=== PATIENT | male | born 1950 | race Caucasian/White ===

== ENCOUNTER 2022-02-25 00:30 | Day surgery (SDC) | payer MEDICARE, SELFPAY ==
[2022-02-10 14:16] VITALS: BMI 32.8
[2022-02-25 07:06] VITALS: BP 156/74; PULSE 61; RESP 18; TEMP 36.4; O2SAT 98
[2022-02-25] MEDS: LACTATED RINGERS 1,000 ML 150 ML IV CONT (07:22)
[2022-02-25 07:24] LABS: Glucose Point of Care 164 mg/dl (65-105)
--- NOTE | 2022-02-25 07:52 | WPDANESEPPF ---
Anes - Initial Pre Proc Eval Procedure: Operation Date: 02/25/22 08:00 Proposed Procedures p Screening Colonoscopy - Dano Milner MD Date/Time: 02/25/22 07:52 Surgeon: Dano Milner MD Pre Op Diagnosis: neoplasm screening Patient Data Age: 71 Gender: M Height: 1.8 m Weight: 103.6 kg Last Vital Signs Temp 97.6 F 02/25/22 07:06 Pulse 61 02/25/22 07:06 Resp 18 02/25/22 07:06 BP 156/74 H 02/25/22 07:06 Pulse Ox 98 02/25/22 07:06 O2 Del Method Room Air 02/25/22 07:06 Allergies Allergy/AdvReac Type Severity Reaction Status Date / Time No Known Allergies Allergy Verified 02/25/22 07:04 Home Medications Medication Instructions Recorded Confirmed Type aspirin 81 mg tablet,delayed 81 mg PO DAILY 06/14/19 02/10/22 History release ferrous sulfate 325 mg (65 mg 325 mg PO DAILY 06/14/19 02/10/22 History iron) tablet vitamin B12 500 mcg-folic acid 400 1 tablet PO DAILY 06/14/19 02/10/22 History mcg tablet blood sugar diagnostic (OneTouch #100 ea 10/08/21 Rx Verio test strips) amlodipine 10 mg tablet (Norvasc) 10 mg PO DAILY #90 tabs 01/07/22 02/25/22 Rx fenofibrate 160 mg tablet 160 mg PO DAILY #90 tabs 01/07/22 02/10/22 Rx metoprolol tartrate 75 mg tablet 75 mg PO BID #180 tabs 01/08/22 02/25/22 Rx allopurinol 300 mg tablet 300 mg PO DAILY 02/10/22 02/10/22 History cholecalciferol (vitamin D3) 50 50 mcg PO DAILY 02/10/22 02/10/22 History mcg (2,000 unit) tablet glipizide 10 mg tablet, extended 10 mg PO DAILY 02/10/22 02/10/22 History release 24 hr lisinopril 10 mg tablet 20 mg PO DAILY 02/10/22 02/10/22 History metformin 500 mg tablet,extended 1,000 mg PO BID 02/10/22 02/10/22 History release 24 hr pantoprazole 40 mg tablet,delayed 40 mg PO DAILY 02/10/22 02/10/22 History release atorvastatin 40 mg tablet 40 mg PO DAILY #90 tabs 02/21/22 02/25/22 Rx Laboratory Tests 02/25/22 07:20 POC Capillary Glucose 164 mg/dl H mg/dl (65-105) Patient hx anesthesia problems: none Family hx anesthesia problems: none Results Review: All pre-operative results and documents have been reviewed as part of the pre-operative evaluation. [facility] Past Medical History Medical History Body mass index [BMI] 32.0-32.9, adult (08/18/17) Body mass index [BMI] 33.0-33.9, adult (04/21/17) CAD in [place] artery Gastroesophageal reflux disease without esophagitis HLD (hyperlipidemia) HTN (hypertension) Oropharyngeal dysphagia Vitamin D deficiency Family History Family History Mother Patient's mother is , Onset Age: 79 Father Patient's father is , Onset Age: 69 Social History Social History Smoking status: Never smoker Alcohol intake: current Drinks per week: 8 Substance use type: does not use Living arrangements: with family Spiritual care concerns: No Anes - Eval Final PreProcedure Day of Procedure 02/25/22 07:52 Patient weight: obese Heart: regular rate and rhythm Lungs: clear to auscultation Airway: Mallampati scale class II Neurological: alert and oriented Last oral intake: >/= 8 hours ASA classification: III Emergent: no Anesthetic plan: proceed Anesthesia type and monitoring: general GIVS and standard monitoring Results Review: All pre-operative results and documents have been reviewed as part of the pre-operative evaluation. Informed Consent: The patient's anesthetic plan and its attendant risks and benefits were discussed with the patient/family/POA. Questions were solicited and answers provided to the satisfaction of the patient/family/POA.
--- NOTE | 2022-02-25 08:11 | PM.HPGS ---
History of Present Illness History of Present Illness Consent: Risks, benefits, and alternatives have been discussed and questions answered. Patient agrees to proceed with procedure. Chief complaint: neoplasm screening Narrative: Bo Zeng is a 71 year old male here for screening colonoscopy, last one ~ 20 years ago Review of Systems Constitutional: Constitutional: Denies headache(s) and Denies weakness Eyes: Eyes: Denies blurry vision ENT: Reports Normal hearing present, Denies headache(s) and Denies neck pain Cardiovascular: Cardiovascular: Denies chest pain and Denies dyspnea Respiratory: Respiratory: Denies dyspnea Gastrointestinal: Gastrointestinal: Reports no additional gastrointestinal complaints Genitourinary: Genitourinary: Denies dysuria Musculoskeletal: Musculoskeletal: Denies neck pain Integumentary/Breasts: Skin/Breast: Denies dry skin Neurologic: Reports Normal hearing present, Denies headache(s) and Denies weakness Psychiatric: Psychiatric: Denies anxiety Endocrine: Endocrine: Denies change in body appearance Hematologic/Lymphatic: Hematologic/Lymphatic: Denies easy bleeding Allergic/Immunologic: Allergic/Immunologic: Denies urticaria PMFSH Past Medical History Medical History Body mass index [BMI] 32.0-32.9, adult (08/18/17) Body mass index [BMI] 33.0-33.9, adult (04/21/17) CAD in [place] artery Gastroesophageal reflux disease without esophagitis HLD (hyperlipidemia) HTN (hypertension) Oropharyngeal dysphagia Vitamin D deficiency Family History Family History Mother Patient's mother is , Onset Age: 79 Father Patient's father is , Onset Age: 69 Social History Social History Smoking status: Never smoker Alcohol intake: current Drinks per week: 8 Substance use type: does not use Living arrangements: with family Spiritual care concerns: No Meds Home Medications and Allergies Home Medications Medication Instructions Recorded Confirmed Type aspirin 81 mg tablet,delayed 81 mg PO DAILY 06/14/19 02/10/22 History release ferrous sulfate 325 mg (65 mg 325 mg PO DAILY 06/14/19 02/10/22 History iron) tablet vitamin B12 500 mcg-folic acid 400 1 tablet PO DAILY 06/14/19 02/10/22 History mcg tablet blood sugar diagnostic (OneTouch #100 ea 10/08/21 Rx Verio test strips) amlodipine 10 mg tablet (Norvasc) 10 mg PO DAILY #90 tabs 01/07/22 02/25/22 Rx fenofibrate 160 mg tablet 160 mg PO DAILY #90 tabs 01/07/22 02/10/22 Rx metoprolol tartrate 75 mg tablet 75 mg PO BID #180 tabs 01/08/22 02/25/22 Rx allopurinol 300 mg tablet 300 mg PO DAILY 02/10/22 02/10/22 History cholecalciferol (vitamin D3) 50 50 mcg PO DAILY 02/10/22 02/10/22 History mcg (2,000 unit) tablet glipizide 10 mg tablet, extended 10 mg PO DAILY 02/10/22 02/10/22 History release 24 hr lisinopril 10 mg tablet 20 mg PO DAILY 02/10/22 02/10/22 History metformin 500 mg tablet,extended 1,000 mg PO BID 02/10/22 02/10/22 History release 24 hr pantoprazole 40 mg tablet,delayed 40 mg PO DAILY 02/10/22 02/10/22 History release atorvastatin 40 mg tablet 40 mg PO DAILY #90 tabs 02/21/22 02/25/22 Rx Allergies Allergy/AdvReac Type Severity Reaction Status Date / Time No Known Allergies Allergy Verified 02/25/22 07:04 Vital Signs Vital Signs - 24 hr 02/25/22 07:06 Temperature 97.6 F Pulse Rate 61 Respiratory Rate 18 Blood Pressure 156/74 H Pulse Oximetry 98 Oxygen Delivery Room Air Exam Const: General: comfortable and no acute distress HENMT: Face/Nose/Sinus: Normal nares present Eyes: General: appearance normal, both eyes and all related structures Neck: Neck: no JVD Resp: Auscultation: clear to auscultation bilaterally Cardio: Rate: regular rate Rhythm:
[2022-02-25 08:26] VITALS: BP 123/75; PULSE 55; RESP 18; O2SAT 96
[2022-02-25 08:36] VITALS: BP 141/81; PULSE 55; RESP 19; O2SAT 100
[2022-02-25 08:46] VITALS: BP 153/83; PULSE 62; RESP 20; O2SAT 100
== END 2022-02-25 08:57 | disposition home or self-care (01) ==
PROVIDERS: PCP Emergency Medicine; Visit Provider Internal Medicine Gastroenterology
PROC: 0DJD8ZZ Inspection of Lower Intestinal Tract, Via Natural or Artificial Opening Endoscopic (ICD-10-PCS; CPT 45378; principal; 2022-02-25 08:00)
DX: Z12.11 Encounter for screening for malignant neoplasm of colon (principal); K64.8 Other hemorrhoids; Z79.82 Long term (current) use of aspirin; Z79.84 Long term (current) use of oral hypoglycemic drugs; I25.10 Atherosclerotic heart disease of native coronary artery without angina pectoris; K21.9 Gastro-esophageal reflux disease without esophagitis; E78.5 Hyperlipidemia, unspecified; I10 Essential (primary) hypertension; E55.9 Vitamin D deficiency, unspecified; E66.9 Obesity, unspecified; Z68.31 Body mass index [BMI] 31.0-31.9, adult
CPT/HCPCS: G0121; 82948; J2704; J7120

== ENCOUNTER 2022-07-19 08:38 | Emergency (ER) | payer MEDICARE, SELFPAY ==
--- NOTE | ~2022-07-19 | CT_ITS ---
EXAMINATION: CT abdomen pelvis w con DATE: 07/19/2022 11:19 INDICATION: Right abdominal pain. TECHNIQUE: Computed tomography (CT) of the abdomen and pelvis was performed with 100 mL Omnipaque 350 intravenous contrast. Automated exposure control and iterative reconstruction technique were employe d. The dose-length product was 1217.00 mGy-cm. COMPARISON: None. FINDINGS: The results visualized portions of the lung bases demonstrate mild atelectasis. No pleural effusion. The heart size is normal. There are coronary artery calcifications. No pericardial effusion . The liver, spleen, gallbladder, pancreas, and kidneys are normal. There is a 7.0 cm cyst in right k idney. Left kidney is normal. The prostate is moderately enlarged. There are no dilated loops of barb l. The appendix is normal. There are no pathologically enlarged lymph nodes. There is no free intrape ritoneal fluid. There is calcified atherosclerosis of the aorta and many of the other arteries. There is severe thoracic spondylosis and moderate lumbar spondylosis. IMPRESSION: 1. No etiology for the patient's symptoms. Reviewed, dictated and finalized at location A. NT COACH
--- NOTE | ~2022-07-19 | US_ITS ---
EXAMINATION: US right upper quadrant DATE: 07/19/2022 12:40 INDICATION: Right upper quadrant abdominal pain. TECHNIQUE: Multiple grayscale and Doppler ultrasound images of the abdomen were obtained. COMPARISON: CT abdomen and pelvis 07/19/2022 FINDINGS: The visualized portions of the head and body of the pancreas are normal. The liver is valerio l without focal lesion. There is normal flow in main portal vein. The gallbladder is normal in size. No gallstones or gallbladder wall thickening. There is no sonographic Herrera sign. The common duct is normal and measures 4 mm. There is a 6.4 cm cyst in right kidney. IMPRESSION: 1. No etiology for the patient's symptoms. Reviewed, dictated and finalized at location A. ICS PROFESSOR
[2022-07-19 08:52] VITALS: BP 140/75; PULSE 66; RESP 16; TEMP 36.4; O2SAT 100
--- NOTE | 2022-07-19 09:27 | ED.ABDPAIN ---
HPI - Abdominal Pain General Chief Complaint: Abdominal Pain Stated Complaint: RUQ pain Time Seen by Provider: 07/19/22 09:06 History of Present Illness HPI narrative: Patient is a 72-year-old male who presents ER with intermittent right-sided abdominal pain. Mid to upper abdomen. Curves in light of symptoms typically worse at night. No nausea or vomiting or diarrhea. No urinary frequency urgency or dysuria. No history of gallstones. Does have history of kidney stones. Denies blood in urine. Has found no alleviating factors. Related Data Home Medications Medication Instructions Recorded Confirmed aspirin 81 mg tablet,delayed 81 mg PO DAILY 06/14/19 02/10/22 release ferrous sulfate 325 mg (65 mg 325 mg PO DAILY 06/14/19 02/10/22 iron) tablet vitamin B12 500 mcg-folic acid 400 1 tablet PO DAILY 06/14/19 02/10/22 mcg tablet allopurinol 300 mg tablet 300 mg PO DAILY 02/10/22 02/10/22 glipizide 10 mg tablet, extended 10 mg PO DAILY 02/10/22 02/10/22 release 24 hr metformin 500 mg tablet,extended 1,000 mg PO BID 02/10/22 02/10/22 release 24 hr Allergies Allergy/AdvReac Type Severity Reaction Status Date / Time No Known Allergies Allergy Verified 07/19/22 08:55 Review of Systems Review of Systems: All systems reviewed & are unremarkable except as noted in HPI and below Constitutional: Constitutional: Denies chills, Denies fatigue and Denies fever(s) ENT: Denies nasal congestion and Denies sore throat Cardiovascular: Cardiovascular: Denies chest pain, Denies rapid heart rate and Denies radiating jaw, neck or arm pain Respiratory: Respiratory: Denies cough and Denies dyspnea Gastrointestinal: Gastrointestinal: Reports abdominal pain, Denies diarrhea, Denies nausea and Denies vomiting Genitourinary: Genitourinary: Denies hematuria, Denies dysuria and Denies urinary frequency PMFSH Past Medical History Medical History (Updated 07/19/22 @ 13:21 by Elliot Levine MD) Body mass index [BMI] 32.0-32.9, adult (08/18/17) Body mass index [BMI] 33.0-33.9, adult (04/21/17) CAD in [place] artery Gastroesophageal reflux disease without esophagitis HLD (hyperlipidemia) HTN (hypertension) Oropharyngeal dysphagia Vitamin D deficiency Surgical History Surgical History (Updated 07/19/22 @ 09:29 by Elliot Levine MD) History of carpal tunnel surgery History of knee replacement, total Hx of CABG Family History Family History Mother Patient's mother is , Onset Age: 79 Father Patient's father is , Onset Age: 69 Social History Social History Smoking status: Never smoker Alcohol intake: current Drinks per week: 8 Substance use type: does not use Living arrangements: with family Spiritual care concerns: No Exam Narrative: GENERAL: Well-appearing, well-nourished, and in no acute distress. HEAD: Normocephalic, atraumatic. EYES: PERRL and EOMI. ENT: Mucous membranes moist. CHEST: Clear to auscultation. No respiratory distress. HEART: Regular rate and rhythm. Normal peripheral pulses. ABDOMEN: Soft, nontender, nondistended. EXTREMITIES: Normal range of motion. No edema. NEURO: Alert and oriented x3. PSYCH: Normal mood and affect. Course Course Emergency Course: Patient resting comfortably. Informed of results. Symptoms may be related to renal cyst. Will give urology phone number. No additional questions from patient/family. Vital Signs Vital signs: Vital Signs Temperature 97.6 F 07/19/22 08:52 Pulse Rate 66 07/19/22 08:52 Respiratory Rate 16 07/19/22 08:52 Blood Pressure 140/75 07/19/22 08:52 Pulse Oximetry 100 07/19/22 08:52 Oxygen Delivery Room Air 07/19/22 08:52 Temperature 97.6 F 07/19/22 08:52 Pulse Rate 66 07/19/22 08:52 Respiratory Rate 16 07/19/22 08:52 Blood Pressure 140/
[2022-07-19 10:14] LABS: Basophils Percent Auto 0.6 % (0.2-1.2); Eosinophils Absolute Auto 0.1 K/mm3 (0-0.3); Eosinophils Percent Auto 1.8 % (0-4.4); Hematocrit 36.8 % (42.0-52.0); Immature Granulocyte Absolute 0.02 K/mm3 (0.00-0.031); Immature Granulocyte Percent A 0.4 % (0-0.5); Lymphocytes Absolute Auto 1.06 K/mm3 (0.9-3.2); Lymphocytes Percent Auto 19.6 % (18.3-44.2); Mean Corpuscular HGB Conc 32.6 g/dl (32-36); Mean Corpuscular Hemoglobin 30.9 pg (26-34); Mean Corpuscular Volume 94.8 fl (80-100); Mean Platelet Volume 9.5 fl (7.4-10.4); Monocytes Absolute Auto 0.5 K/mm3 (0.1-0.6); Monocytes Percent Auto 8.5 % (2.6-8.5); Neutrophils Absolute Auto 3.8 K/mm3 (1.3-6.7); Neutrophils Percent Auto 69.1 % (45.5-73.1); Platelet Count Result 209 k/mm3 (150-375); Red Blood Count 3.88 M/mm3 (4.6-6.20); Red Cell Distribution Width 12.7 % (11.5-14.5); White Blood Count 5.4 K/mm3 (4.5-10.0)
[2022-07-19 10:37] LABS: Appearance Urine Clear (Clear); Bacteria Urine None Seen /hpf; Bilirubin Urine Negative (Negative); Blood Urine Trace (Negative); Color Urine Yellow (Yellow); Glucose Urine UA 1+ mg/dL (Negative); Ketones Urine Negative (Negative); Leukocyte Esterase Ur Negative LEU/UL (Negative); Nitrate Urine Negative (Negative); Non Pathogenic Casts 0-2; Protein Urine 3+ mg/dL (Negative); RBC Urine 0-2 /hpf (0-2); Specific Grav Ur 1.016 (1.001-1.035); Squamous Epithelial Cell Urine None seen /hpf (Few); Urobilinogen Urine 0.2 mg/dL (<2.0); WBC Urine 0-5 /hpf
[2022-07-19 10:40] LABS: Alanine Aminotransferase 16 U/L (6-50); Alkaline Phosphatase 40 U/L (38-126); Anion Gap 6 mmol/L (8-16); Aspartate Amino Transferase 20 U/L (17-59); Bilirubin,Total 0.6 mg/dL (0.2-1.3); Blood Urea Nitrogen 19 mg/dL (9-20); Calcium 9.1 mg/dL (8.4-10.2); Carbon Dioxide 26 mmol/L (22-30); Chloride 100 mmol/L (98-107); Estimated CRCL calculation 59 ml/min; Estimated Glomerular Filt Rate 59; Glucose 206 mg/dL (65-110); Lipase 69 U/L (23-300); Potassium 4.2 mmol/L (3.4-5.0); Sodium 132 mmol/L (137-145)
[2022-07-19 10:42] LABS: Add Urine Microscopic? YES
== END 2022-07-19 13:51 | disposition home or self-care (01) ==
PROVIDERS: Emergency Provider Emergency Medicine; PCP Emergency Medicine
DX: N28.1 Cyst of kidney, acquired (principal); R10.9 Unspecified abdominal pain; I25.10 Atherosclerotic heart disease of native coronary artery without angina pectoris; I10 Essential (primary) hypertension; E78.5 Hyperlipidemia, unspecified; E55.9 Vitamin D deficiency, unspecified; K21.9 Gastro-esophageal reflux disease without esophagitis; Z95.1 Presence of aortocoronary bypass graft; Z79.82 Long term (current) use of aspirin; Z79.84 Long term (current) use of oral hypoglycemic drugs
CPT/HCPCS: 36415; 74177; 76705; 80053; 81001; 83690; 85025; 99284; Q9967

== ENCOUNTER 2024-02-16 07:53 | Outpatient (CLI) | payer MEDICARE, SELFPAY ==
--- NOTE | ~2024-02-16 | US_ITS ---
Renal-Bladder ultrasound Clinical History: Hypertension Technique: Real-time sonographic imaging of the kidneys and urinary bladder was performed. Findings: The right kidney measures 11.9 cm in length and the left kidney measures 13.3 cm. There is no hydronephrosis or renal calculus identified. Renal cortical echogenicity is increased. Right lower pole renal cyst measures 6.7 cm in diameter, with a single thin septation. The urinary bladder is moderately distended at the time of this exam. No intraluminal echoes are iden tified. No abnormal wall thickening is seen. Impression: Echogenic kidneys suggest chronic medical renal disease. Large, benign right lower pole renal cyst, as above. Reviewed, dictated and finalized at location M. Impression: Echogenic kidneys suggest chronic medical renal disease. Large, benign right lower pole renal cyst, as above.
== END 2024-02-16 07:54 | disposition home or self-care (01) ==
PROVIDERS: PCP Emergency Medicine; Visit Provider Internal Medicine Nephrology
DX: I10 Essential (primary) hypertension (principal); N18.31 Chronic kidney disease, stage 3a
CPT/HCPCS: 76775

== ENCOUNTER 2025-05-14 04:12 | Inpatient (IN) | payer MEDICARE, SELFPAY ==
[2025-05-14] VITALS (19 sets, daily range): BP systolic 132–161; BP diastolic 67–88; PULSE 60–107; RESP 14–22; TEMP 36.6–37.1; O2SAT 94–100; BMI 32.8
--- NOTE | ~2025-05-14 | XR_ITS ---
Examination: XR chest 1V portable Clinical History: KANDIS Comparison: 10/30/2017 Technique: Portable AP Findings: Heart size enlarged. Left lung unilateral interstitial markings. Left CP angle blunting. No acute bony abnormality. IMPRESSION: 1. Left lung unilateral interstitial pulmonary edema and/or pneumonitis. 2. Probable small left pleural effusion. Reviewed, dictated and finalized at location R. INTMENT MANAGER
--- NOTE | 2025-05-14 04:28 | ECG_ITS ---
Test Date: 2025-05-14 04:49:19 Measurements Intervals [place] Rate: 71 P: 0 [place]: 0 QRS: -30 QRSD: 101 T: 58 QT: 403 QTc: 439 Interpretive Statements ATRIAL FIBRILLATION POOR R WAVE PROGRESSION BASELINE ARTIFACT- I, II, III, AVR, AVL, AVF, V1-V2 ABNORMAL ECG No previous ECG available for comparison Electronically Signed On 05-14-2025 08:14:38 MENTAL HEALTH WORKER by Dagoberto Perez D.O.
--- NOTE | 2025-05-14 04:45 | ED.SOB ---
HPI - SOB/Dyspnea General Chief Complaint: Shortness of Breath/Dyspnea Stated Complaint: SOB Time Seen by Provider: 05/14/25 04:30 History of Present Illness HPI Narrative: 74-year-old male with history of cardiac disease status post bypass in 2018, CKD, hypertension, hyperlipidemia and recently diagnosed atrial fibrillation 11 days ago. Started on Xarelto. Patient is scheduled for a left heart catheterization next week for abnormal myocardial perfusion study that was done on the showing area of reversible ischemia which was new. 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 Gann. Patient has been having progressively worsening symptoms especially today. He states he is not able to lie flat and having worsening exertional shortness of breath and orthopnea. Exertional component to his dyspnea requiring very minimal movement prior to him getting winded and having difficulty catching his breath. No exertional pain and no angina at rest. Is on several different medications for his heart and kidney function with new introduction of Lasix and Xarelto after he saw his cardiac nurse practitioner last week. Related Data Home Medications ?Medication ?Instructions ?Recorded ?Confirmed ?Last Taken ?Type aspirin 81 mg tablet,delayed 81 mg PO DAILY 06/14/19 05/03/25 Unknown History release ferrous sulfate 325 mg (65 mg 325 mg PO DAILY 06/14/19 05/03/25 Unknown History iron) tablet vitamin B12 500 mcg-folic acid 400 1 tablet PO DAILY 06/14/19 05/03/25 Unknown History mcg tablet Allergies Allergy/AdvReac Type Severity Reaction Status Date / Time No Known Allergies Allergy Verified 05/14/25 04:18 Review of Systems Review of Systems: As reviewed above in the HPI All systems reviewed & are unremarkable except as noted in HPI and below [facility] Past Medical History Medical History Excess ear wax Contact dermatitis Body mass index [BMI] 32.0-32.9, adult (08/18/17) Body mass index [BMI] 33.0-33.9, adult (04/21/17) CAD in [place] artery Gastroesophageal reflux disease without esophagitis Oropharyngeal dysphagia Vitamin D deficiency CKD (chronic kidney disease), stage III HLD (hyperlipidemia) HTN (hypertension) Surgical History Surgical History History of carpal tunnel surgery History of knee replacement, total Hx of CABG Family History Family History Mother Patient's mother is , Onset Age: 79 Father Patient's father is , Onset Age: 69 Social History Social History Smoking status: Never smoker Alcohol intake: current Drinks per week: 1 Alcohol use details: rarely Substance use: never Substance use type: does not use Lack of Transportation: No Lack of Food: Never True Current Housing: I Have Housing Concerned About Future Housing: No Difficulty Paying Gas/Electric Bills: No Difficulty Paying for Meds: No Currently Unemployed: No Education: High School Diploma/GED Difficulty w/ Childcare or Family Care: No Living arrangements: with family Gender identity (if verbalized by the patient): Male Spiritual care concerns: No Exam Narrative: GENERAL: [Well-appearing, well-nourished, and in no acute distress.] HEAD: [Normocephalic, atraumatic.] EYES: [PERRLA and EOMI.] ENT: Nares clear, no rhinorrhea or epistaxis. Mucous membranes moist. NECK: Supple. CHEST: [Clear to auscultation. No respiratory distress.] HEART: Irregular rate, no tachycardia. Warm extremities. Good pulses. ABDOMEN: [Soft, nondistended], [nontender], [No rigidity or guarding] EXTREMITIES: Normal range of motion. 1+ edema at the ankles SKIN: Warm, dry, no rash. NEURO: [No focal deficits]. Alert and oriented [x3.] PSYCH: [Normal mood and affect.] Course Vital Signs Vital signs: Vital Signs Temperature 36.6 C 05/14/25 04:15 Pulse Rate 74 05/14/25 04:15 Respiratory Rate 22 H 05/14/25 04:15 Blood Pressure 153/75 H 05/14/25 04:15 Pulse Oximetry 98 05/14/25 04:15 Oxygen Delivery Room Air 05/14/25 04:15 Temperature 36.6 C 05/14/25 04:15 Pulse Rate 67 05/14/25 04:29 Respiratory Rate 18 05/14/25 04:29 Blood Pressure 143/88 H 05/14/25 04:29 Pulse Oximetry 96 05/14/25 04:29 Oxygen Delivery Room Air 05/14/25 04:29 MDM MDM Narrative Medical decision making narrative: 74-year-old male with history of cardiac disease status post bypass in 2018, CKD, hypertension, hyperlipidemia and recently diagnosed atrial fibrillation 11 days ago. Started on Xarelto. Patient is scheduled for a left heart catheterization next week for abnormal myocardial perfusion study that was done on the showing area of reversible ischemia which was new. 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 Gann. Patient has been having progressively worsening symptoms especially today. He states he is not able to lie flat and having worsening exertional shortness of breath and orthopnea. Exertional component to his dyspnea requiring very minimal movement prior to him getting winded and having difficulty catching his breath. No exertional pain and no angina at rest. Is on several different medications for his heart and kidney function with new introduction of Lasix and Xarelto after he saw his cardiac nurse practitioner last week. Patient is in AFib on the monitor. No tachycardia. No tachypnea, hypoxemia or significant blood pressure derangements. Does have some edema on examination. Clear breath sounds. Has been having worsened ill ACS equivalent symptoms especially today with exertional dyspnea and orthopnea. Recently diagnosed AFib and abnormal myocardial perfusion scan with plan for left heart catheterization but his symptoms have progressed before he can get this done outpatient. Suspect ACS verses AFib with decreased ejection fraction causing his symptoms. Possibility of heart failure or kidney failure progression. Laboratory studies EKG and chest x-ray ordered. Patient will be admitted upon completion of workup given progression of symptoms and has cardiology team is at this facility for consult. Patient's laboratory studies reveal an elevated BNP, he does have an CORA on top of CKD but clinically volume overloaded and his chest x-ray has possible pleural effusion on the left side versus interstitial edema. Does have cardiomegaly. EKG without any ischemic evidence. Possible cardiorenal process or symptoms from new afib with associated EF reduction? Given his orthopnea and worsening shortness of breath will do a trial of Lasix at a higher dose to see if that helps alleviate any of his symptoms. Patient's troponin is negative. Will be admitted to the IMU for further evaluation and treatment. Discussed the case with the hospitalist who accepted the patient to the IMU at this time. Cardiology consult placed. Differential Diagnosis Differential Diagnosis: Suspect ACS verses AFib with decreased ejection fraction causing his symptoms. Possibility of heart failure or kidney failure progression. Lab Data MDM Lab Attestation statement: I personally reviewed the patient's lab results. 05/14/25 04:37 05/14/25 04:37 Labs: Lab Results 05/14/25 Range/Units 04:37 WBC 5.8 (4.5-10.0) K/mm3 RBC 3.26 L (4.6-6.20) M/mm3 Hgb 10.0 L (14.0-18.0) g/dL Hct 32.6 L (42.0-52.0) % MCV 100.0 (80-100) fl MCH 30.7 (26-34) pg MCHC 30.7 L (32-36) g/dl RDW 13.3 (11.5-14.5) % Plt Count 185 (150-375) k/mm3 MPV 10.0 (7.4-10.4) fl Immature Gran % (Auto) 0.5 (0-0.5) % Neut % (Auto) 65.4 (45.5-73.1) % Lymph % (Auto) 20.1 (18.3-44.2) % Sunflower % (Auto) 8.1 (2.6-8.5) % Eos % (Auto) 5.0 H (0-4.4) % Baso % (Auto) 0.9 (0.2-1.2) % Lymph # (Auto) 1.16 (0.9-3.2) K/mm3 Sunflower # (Auto) 0.5 (0.1-0.6) K/mm3 Eos # (Auto) 0.3 (0-0.3) K/mm3 Baso # (Auto) 0.1 (0.0-0.1) K/mm3 Abs Immat Gran (auto) 0.03 (0.00-0.031) K/mm3 Absolute Neuts (auto) 3.8 (1.3-6.7) K/mm3 Absolute Nucleated RBC 0.000 (0.0-0.012) K/mm3 Nucleated RBC % 0.0 (0.0-0.2) % Sodium 140 (137-145) mmol/L Potassium 4.7 (3.4-5.0) mmol/L Chloride 109 H (98-107) mmol/L Carbon Dioxide 25 (22-30) mmol/L Anion Gap 6 (4-12) mmol/L BUN 40 H D (9-20) mg/dL Creatinine 2.30 H (0.7-1.3) mg/dL Estim Creat Clear Calc 31 ml/min Estimated GFR 28 L (59 - ) Glucose 99 (65-110) mg/dL Calcium 8.9 (8.4-10.2) mg/dL Total Bilirubin 0.5 (0.2-1.3) mg/dL AST 22 (17-59) U/L ALT 13 (6-50) U/L Alkaline Phosphatase 51 (38-126) U/L Troponin I < 0.012 (0.000-0.034) ng/mL NT-Pro-B Natriuret Pep 4540 H (19.9-100) pg/mL Total Protein 6.9 (6.3-8.2) g/dL Albumin 3.9 (3.5-5.1) g/dL Influenza A (RT-PCR) Negative (Negative) Influenza B (RT-PCR) Negative (Negative) RSV (RT-PCR) Negative (Negative) SARS-CoV-2 RNA (RT-PCR) Negative (Negative) Imaging Data Attestation: I personally reviewed and interpreted this imaging study as follows: My impression: Cardiomegaly, edema, possible of pleural effusion Discharge Plan Discharge Clinical Impression: Exertional shortness of breath, Orthopnea, New onset a-fib, History of coronary artery disease Patient Disposition: Still a Patient Condition: Stable Patient Language: [place] Prescriptions: No Action aspirin 81 mg tablet,delayed release (DR/EC) 81 mg PO DAILY vitamin [id number] acid 500-400 mcg tablet 1 tablet PO DAILY Rx Instructions: administer with a meal ferrous sulfate 325 mg (65 mg iron) tablet 325 mg PO DAILY (DME) blood-glucose meter [OneTouch Verio Flex meter[place] [facility] [place]ructions .Route Qty: 1 3RF Rx Instructions: As directed triamcinolone acetonide 0.1 % ointment See Rx Instructions .ROUTE .COMPLEX Qty: 80 2RF Dose Instruction: APPLY TOPICALLY 3 TIMES A DAY Rx Instructions: APPLY TOPICALLY 3 TIMES A DAY atorvastatin 40 mg tablet See Rx Instructions .ROUTE .COMPLEX Qty: 100 2RF Dose Instruction: TAKE 1 TABLET BY MOUTH EVERY DAY Rx Instructions: TAKE 1 TABLET BY MOUTH EVERY DAY metoprolol tartrate 75 mg tablet See Rx Instructions .ROUTE .COMPLEX Qty: 180 2RF Dose Instruction: TAKE 1 TABLET BY MOUTH TWICE A DAY Rx Instructions: TAKE 1 TABLET BY MOUTH TWICE A DAY amlodipine 10 mg tablet See Rx Instructions .ROUTE .COMPLEX Qty: 90 2RF Dose Instruction: TAKE 1 TABLET BY MOUTH EVERY DAY Rx Instructions: TAKE 1 TABLET BY MOUTH EVERY DAY metformin 500 mg tablet extended release 24 hr See Rx Instructions .ROUTE .COMPLEX Qty: 360 2RF Dose Instruction: TAKE 2 TABLETS BY MOUTH TWICE A DAY WITH FOOD Rx Instructions: TAKE 2 TABLETS BY MOUTH TWICE A DAY WITH FOOD lisinopril 10 mg tablet See Rx Instructions .ROUTE .COMPLEX Qty: 180 2RF Dose Instruction: TAKE 2 TABLETS BY MOUTH DAILY Rx Instructions: TAKE 2 TABLETS BY MOUTH DAILY (DME) [employer] Verio test strips Strip See Rx Instructions .ROUTE .COMPLEX Qty: 100 3RF Dose Instruction: USE TO TEST ONCE DAILY Rx Instructions: USE TO TEST ONCE DAILY allopurinol 300 mg tablet See Rx Instructions .ROUTE .COMPLEX Qty: 90 2RF Dose Instruction: TAKE 1 TABLET BY MOUTH EVERY DAY Rx Instructions: TAKE 1 TABLET BY MOUTH EVERY DAY cholecalciferol (vitamin D3) [Vitamin D3] 50 mcg (2,000 unit) tablet See Rx Instructions .ROUTE .COMPLEX Qty: 90 2RF Dose Instruction: TAKE 1 TABLET BY MOUTH EVERY DAY Rx Instructions: TAKE 1 TABLET BY MOUTH EVERY DAY fenofibrate 160 mg tablet See Rx Instructions .ROUTE .COMPLEX Qty: 90 2RF Dose Instruction: TAKE 1 TABLET BY MOUTH EVERY DAY Rx Instructions: TAKE 1 TABLET BY MOUTH EVERY DAY glipizide 10 mg tablet extended release 24hr See Rx Instructions .ROUTE .COMPLEX Qty: 90 2RF Dose Instruction: TAKE 1 TABLET BY MOUTH EVERY DAY Rx Instructions: TAKE 1 TABLET BY MOUTH EVERY DAY pantoprazole 40 mg tablet,delayed release (DR/EC) See Rx Instructions .ROUTE .COMPLEX Qty: 90 2RF Dose Instruction: TAKE 1 TABLET BY MOUTH EVERY DAY Rx Instructions: TAKE 1 TABLET BY MOUTH EVERY DAY Follow-up/Referrals: Mino Goldman MD [Primary Care Provider, Internal Medicine] Time of Disposition: 05:49
[2025-05-14 04:47] LABS: Hematocrit 32.6 % (42.0-52.0); Hemoglobin 10.0 g/dL (14.0-18.0); Immature Granulocyte Percent A 0.5 % (0-0.5); Lymphocytes Absolute Auto 1.16 K/mm3 (0.9-3.2); Mean Corpuscular HGB Conc 30.7 g/dl (32-36); Mean Corpuscular Hemoglobin 30.7 pg (26-34); Mean Corpuscular Volume 100.0 fl (80-100); Nucleated Red Blood Cells Absolute Auto 0.000 K/mm3 (0.0-0.012); Nucleated Red Blood Cells Perc 0.0 % (0.0-0.2); Platelet Count Result 185 k/mm3 (150-375); Red Blood Count 3.26 M/mm3 (4.6-6.20); White Blood Count 5.8 K/mm3 (4.5-10.0)
[2025-05-14 05:07] LABS: Alanine Aminotransferase 13 U/L (6-50); Albumin Level 3.9 g/dL (3.5-5.1); Alkaline Phosphatase 51 U/L (38-126); Anion Gap 6 mmol/L (4-12); Aspartate Amino Transferase 22 U/L (17-59); Bilirubin,Total 0.5 mg/dL (0.2-1.3); Blood Urea Nitrogen 40 mg/dL (9-20); Calcium 8.9 mg/dL (8.4-10.2); Carbon Dioxide 25 mmol/L (22-30); Chloride 109 mmol/L (98-107); Estimated CRCL calculation 31 ml/min; Estimated Glomerular Filt Rate 28; Glucose 99 mg/dL (65-110); Potassium 4.7 mmol/L (3.4-5.0); Sodium 140 mmol/L (137-145); Total Protein 6.9 g/dL (6.3-8.2)
[2025-05-14 05:17] LABS: NT Pro B Type Natriuretic Pept 4540 pg/mL (19.9-100); Troponin I < 0.012 ng/mL (0.000-0.034)
[2025-05-14 05:24] LABS: Influenza A QL RT-PCR Negative (Negative); Influenza B QL RT-PCR Negative (Negative); RSV RNA, RT-PCR Negative (Negative); SARS-CoV-2 RNA PCR Negative (Negative)
[2025-05-14] MEDS: FUROSEMIDE INJ 100 MG/10 ML VIAL 80 MG IV PUSH (06:18)
--- NOTE | 2025-05-14 11:09 | WPCEDHO ---
ED Hand Off Checklist All vitals saved:y IV Site documented:y All med administrations documented:y Triage Note Triage Note Patient arrives with cc of 05/14/25 04:29 worsening SOB. 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 Patient states he sees Dr. Gann. Patient denies any pain. Patient states his shortness of breath has gotten much worse over the past day. 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 Shell Reprinting Unit Operator Yes Applied Pulse Rate (60-100 74 beats/min) EKG Rythm Atrial Fibrillation IV / Saline Lock, Insert Start: 05/14/25 04:28 Freq: STAT Status: Active Protocol: Document 05/14/25 04:28 SRW (Rec: 05/14/25 04:52 SRW [id number]) IV Assessment Peripheral Access Right Antecubital IV Catheter Access Initiated IV Insertion Date 05/14/25 IV Insertion Time 04:52 Catheter Gauge 20 IV Insertion 1 Attempts Ultrasound Used for No Placement IV Site Assessment WNL IV Care and WNL Maintenance PA: Cardiovascular Assessment Start: 05/14/25 04:12 Freq: Status: Active Protocol: Document 05/14/25 04:32 SRW (Rec: 05/14/25 04:32 SRW [id number]) Cardiovascular Assessment Cardiovascular None Symptoms Skin Description Normal Color PA: Respiratory Assessment Start: 05/14/25 04:12 Freq: Status: Active Protocol: Document 05/14/25 06:21 SRW (Rec: 05/14/25 06:21 SRW [id number]) Respiratory Assessment Symptoms Shortness of Breath With Exertion Last Vital Signs Temperature 97.8 F 05/14/25 04:15 Pulse Rate 72 05/14/25 11:02 Respiratory Rate 20 05/14/25 11:02 Pulse Oximetry 97 05/14/25 11:02 Blood Pressure 145/87 H 05/14/25 11:02 Blood Pressure Mean 106 05/14/25 11:02 Blood Pressure Position Sitting 05/14/25 11:02 Oxygen Delivery Room Air 05/14/25 04:29 Weight 109 kg 05/14/25 04:15 Last Result - Abnormals Only RBC 3.26 M/mm3 (4.6-6.20) L 05/14/25 04:37 Hgb 10.0 g/dL (14.0-18.0) L 05/14/25 04:37 Hct 32.6 % (42.0-52.0) L 05/14/25 04:37 MCHC 30.7 g/dl (32-36) L 05/14/25 04:37 Eos % (Auto) 5.0 % (0-4.4) H 05/14/25 04:37 Chloride 109 mmol/L (98-107) H 05/14/25 04:37 BUN 40 mg/dL (9-20) H D 05/14/25 04:37 Creatinine 2.30 mg/dL (0.7-1.3) H 05/14/25 04:37 Estimated GFR 28 (59-) L 05/14/25 04:37 NT-Pro-B Natriuret Pep 4540 pg/mL (19.9-100) H 05/14/25 04:37 Most Recent Suicide Severity Rating Suicide Severity Rating NO RISK INDICATED 05/14/25 04:29
--- NOTE | 2025-05-14 12:49 | ADMGEN ---
This patient, Bo Zeng, was admitted to IMU Room 202-01. Patient/family oriented to hospital policies and general routines including ID bracelet, bed and alarms, visiting hours, pain management, procedures, bathroom and other care routines, personal items, smoking policy, room service/diet, and visiting hours. Information on how to activate the Rapid Response Team has been discussed. Patient/Family are encouraged to report perceived risks to care and to ask questions if they do not understand what they are told or what they should do. Patient is resting in bed. A&Ox4. Able to make needs known and voiced no complaints or concerns at this time. Admission assessment completed and documented. Personal items in reach. Bed low and locked. Call light in reach. Will continue to monitor. Cindi Lau RN
--- NOTE | 2025-05-14 14:48 | ECG_ITS ---
Test Date: 2025-05-14 23:44:15 Measurements Intervals [place] Rate: 69 P: 0 UT: 0 QRS: -27 QRSD: 104 T: 58 QT: 419 QTc: 452 Interpretive Statements ATRIAL FIBRILLATION POOR R WAVE PROGRESSION INFERIOR INFARCT, AGE INDETERMINATE BASELINE ARTIFACT- III, AVF ABNORMAL ECG Compared to ECG 05/14/2025 04:49:19 NO SIGNIFICANT CHANGE Electronically Signed On 05-15-2025 08:38:34 FAMILY SERVICES COORDINATOR by Dagoberto Perez D.O.
--- NOTE | 2025-05-14 14:50 | PM.CNCAR ---
Assessment and Plan Assessment and plan (1) New onset a-fib: Code(s): I48.91 - Unspecified atrial fibrillation Status: Acute (2) HLD (hyperlipidemia): Qualifiers: Hyperlipidemia type: mixed hyperlipidemia Qualified Code(s): E78.2 - Mixed hyperlipidemia Code(s): E78.5 - Hyperlipidemia, unspecified Status: Acute Plan This is a 74-year-old man known to have multivessel coronary disease doing well clinically since surgical revascularization in 2018. He is now experiencing shortness of breath which is likely the result of the recurrence of atrial fibrillation in the last month or so. He has been anticoagulated with Xarelto but only since May 03. He presents with the symptoms worsening. His evaluation has included an echocardiogram which shows his LV systolic function to be normal but he does have some mitral regurgitation. His nuclear stress test suggest his a ischemic defect but he is not reporting any exertional chest pain or anginal-type symptoms. In my view the priority should be to try to restore sinus rhythm before we consider bringing him for a left heart catheterization. Jainism of sinus rhythm will likely help him symptomatically more than anything else. I will transition his beta-deyanira to sotalol, continue his Xarelto and try to arrange for JENNI/cardioversion to be done either tomorrow or this week some time. After that is done we can assess his symptomatic response and determine whether follow-up angiography needs to be recommended. Proceeding with catheterization before cardioversion would of course necessitate discontinuing anticoagulation and that would also delay christian of sinus rhythm. Mino Gann MD [facility] History of Present Illness History of Present Illness Consult date/time: 05/14/25 14:50 Reason For Visit: Exertional dyspnea, CHF? possible cardiorenal Narrative: This is a 74-year-old man I am seeing today at the request of the hospitalist who was admitted from the emergency room earlier today because of the onset of exertional shortness of breath that began about 6 weeks ago. The patient is known to me with a history of coronary artery disease and was seen recently in our office by our nurse practitioner in the middle of this month. He is reporting for about a month now he is having exertional shortness of breath with progressively less activity. He is not having any orthopnea or PND he has not really noticed much in the way of lower extremity edema. He was seen by the nurse practitioner on May 03 and was found to be in atrial fibrillation. He was prescribed metoprolol at a higher dose he was anticoagulated with Xarelto and a Lexiscan nuclear stress test as well as an echocardiogram were done. The echocardiogram demonstrated normal left ventricular systolic function, moderate mitral valve insufficiency and atrial fibrillation. His nuclear stress test showed a modest reversible inferior defect concerning for ischemia. The patient is not reporting any chest pain pressure heaviness with moderate activity he is short of breath but he is not having any chest pain per se. At with these findings he was scheduled for a follow-up left heart catheterization to be done as an outpatient. Because shortness of breath has become progressively more problematic he came in today for evaluation. He is visiting with his in the room as I saw him he not in any distress at all as long as he is quiescent and sedentary. The patient does have a history of coronary artery disease I have been following him since October of 2017 when he came into the hospital with exertional anginal-type chest pain angiography demonstrated multivessel disease and he was referred for surgical revascularization which took place at [facility] He received an ANDRE graft to the LAD, a radial artery graft to the distal RCA and a saphenous vein graft to his OM circumflex branch. He has done well since then. His last visit with me in the office was in April of last year. He did have postop atrial fibrillation transiently for which he was treated with amiodarone for a short time but that did resolve and has not recurred until this time. Review of Systems Constitutional: Constitutional: Reports no additional constitutional complaints Eyes: Eyes: Reports no additional eye complaints ENT: Reports system reviewed and no additional complaints, except as documented Cardiovascular: Cardiovascular: Reports as per HPI Respiratory: Respiratory: Reports dyspnea on exertion Gastrointestinal: Gastrointestinal: Reports no additional gastrointestinal complaints Musculoskeletal: Musculoskeletal: Reports no additional musculoskeletal complaints Integumentary/Breasts: Skin/Breast: Reports system reviewed and no additional complaints, except as docu Neurologic: Reports system reviewed and no additional complaints, except as documented Endocrine: Endocrine: Reports no additional endocrine complaints Hematologic/Lymphatic: Hematologic/Lymphatic: Reports no additional hematologic/lymphatic complaints Allergic/Immunologic: Allergic/Immunologic: Reports no additional allergic/immunologic complaints [facility] Past Medical History Medical History Excess ear wax Contact dermatitis Body mass index [BMI] 32.0-32.9, adult (08/18/17) Body mass index [BMI] 33.0-33.9, adult (04/21/17) CAD in [place] artery Gastroesophageal reflux disease without esophagitis Oropharyngeal dysphagia Vitamin D deficiency CKD (chronic kidney disease), stage III HLD (hyperlipidemia) HTN (hypertension) Surgical History Surgical History History of carpal tunnel surgery History of knee replacement, total Hx of CABG Family History Family History Mother Patient's mother is , Onset Age: 79 Father Patient's father is , Onset Age: 69 Social History Social History Smoking status: Never smoker Second hand tobacco smoke exposure: Yes Alcohol intake: current Drinks per week: 6 Alcohol use details: rarely Substance use: never Substance use type: does not use Lack of Transportation: No Lack of Food: Never True Current Housing: I Have Housing Concerned About Future Housing: No Difficulty Paying Gas/Electric Bills: No Difficulty Paying for Meds: No Currently Unemployed: No Education: High School Diploma/GED Difficulty w/ Childcare or Family Care: No Living arrangements: with family Gender identity (if verbalized by the patient): Male Spiritual care concerns: No Meds Home Medications and Allergies Home Medications ?Medication ?Instructions ?Recorded ?Confirmed ?Type ferrous sulfate 325 mg (65 mg 325 mg PO DAILY 06/14/19 05/14/25 History iron) tablet vitamin B12 500 mcg-folic acid 400 1 tablet PO DAILY 06/14/19 05/14/25 History mcg tablet blood-glucose meter (OneTouch #1 ea 04/01/24 05/03/25 Rx Verio Flex Meter) atorvastatin 40 mg tablet See Rx Instructions .Route 08/01/24 05/14/25 Rx .COMPLEX #100 tabs metoprolol tartrate 75 mg tablet See Rx Instructions .Route 08/01/24 05/14/25 Rx .COMPLEX #180 tabs amlodipine 10 mg tablet See Rx Instructions .Route 09/12/24 05/14/25 Rx .COMPLEX #90 tabs lisinopril 10 mg tablet See Rx Instructions .Route 12/05/24 05/14/25 Rx .COMPLEX #180 tabs metformin 500 mg tablet,extended See Rx Instructions .Route 12/05/24 05/14/25 Rx release 24 hr .COMPLEX #360 tabs blood sugar diagnostic (OneTouch #100 strips 01/30/25 05/03/25 Rx Verio test strips) allopurinol 300 mg tablet See Rx Instructions .Route 02/07/25 05/14/25 Rx .COMPLEX #90 tabs cholecalciferol (vitamin D3) 50 See Rx Instructions .Route 02/14/25 05/14/25 Rx mcg (2,000 unit) tablet (Vitamin .COMPLEX #90 tabs D3) fenofibrate 160 mg tablet See Rx Instructions .Route 03/27/25 05/14/25 Rx .COMPLEX #90 tabs glipizide 10 mg tablet, extended See Rx Instructions .Route 04/18/25 05/14/25 Rx release 24 hr .COMPLEX #90 tabs pantoprazole 40 mg tablet,delayed See Rx Instructions .Route 04/24/25 05/14/25 Rx release .COMPLEX #90 tabs Allergies Allergy/AdvReac Type Severity Reaction Status Date / Time No Known Allergies Allergy Verified 05/14/25 12:31 Vital Signs Vital Signs - 24 hr 05/14/25 04:15 05/14/25 04:29 05/14/25 06:18 Temperature 36.6 C Pulse Rate 74 67 70 Respiratory Rate 22 H 18 18 Blood Pressure 153/75 H 143/88 H 151/75 H Pulse Oximetry 98 96 100 Oxygen Delivery Room Air Room Air 05/14/25 07:00 05/14/25 08:45 05/14/25 09:00 Temperature Pulse Rate 68 69 73 Respiratory Rate 18 20 14 Blood Pressure 144/76 H 132/75 133/67 Pulse Oximetry 98 96 96 Oxygen Delivery 05/14/25 09:11 05/14/25 11:02 05/14/25 11:09 Temperature Pulse Rate 74 72 62 Respiratory Rate 20 18 Blood Pressure 145/87 H 145/87 H Pulse Oximetry 97 97 Oxygen Delivery 05/14/25 11:32 05/14/25 12:16 Temperature 36.7 C Pulse Rate 79 Respiratory Rate 22 H Blood Pressure 149/80 H Pulse Oximetry 98 98 Oxygen Delivery Room Air Exam Const: General: comfortable and no acute distress Other: Very pleasant somewhat overweight man no distress of any sort at this time HENMT: Mouth: Yes moist mucous membranes Eyes: Sclera: sclerae normal Neck: Neck: supple and no JVD Resp: Effort & Inspection: normal respiratory effort Auscultation: clear to auscultation bilaterally Other: No audible rales rhonchi or wheezing at this time Cardio: Rate: regular rate Rhythm: abnormal rhythm irregularly irregular GI: GI Palp: Yes Soft to palpation Auscultation: normal bowel sounds Skin: General skin exam: normal color Neuro: Other: Alert and oriented x3 Extrem: General: normal to inspection Results Labs and Meds 05/14/25 04:37 05/14/25 04:37 Lab results: Cardiac Enzymes 05/14/25 Range/Units 04:37 AST 22 (17-59) U/L Troponin I < 0.012 (0.000-0.034) ng/mL CBC 05/14/25 Range/Units 04:37 WBC 5.8 (4.5-10.0) K/mm3 RBC 3.26 L (4.6-6.20) M/mm3 Hgb 10.0 L (14.0-18.0) g/dL Hct 32.6 L (42.0-52.0) % Plt Count 185 (150-375) k/mm3 Lymph # (Auto) 1.16 (0.9-3.2) K/mm3 [place] # (Auto) 0.5 (0.1-0.6) K/mm3 Eos # (Auto) 0.3 (0-0.3) K/mm3 Baso # (Auto) 0.1 (0.0-0.1) K/mm3 Comprehensive Metabolic Panel 05/14/25 Range/Units 04:37 Sodium 140 (137-145) mmol/L Potassium 4.7 (3.4-5.0) mmol/L Chloride 109 H (98-107) mmol/L Carbon Dioxide 25 (22-30) mmol/L BUN 40 H D (9-20) mg/dL Creatinine 2.30 H (0.7-1.3) mg/dL Glucose 99 (65-110) mg/dL Calcium 8.9 (8.4-10.2) mg/dL AST 22 (17-59) U/L ALT 13 (6-50) U/L Alkaline Phosphatase 51 (38-126) U/L Total Protein 6.9 (6.3-8.2) g/dL Albumin 3.9 (3.5-5.1) g/dL Intake and Output 05/13/25 05/14/25 05/14/25 23:59 07:59 15:59 Intake Total 240 Output Total 600 750 Balance -600 -510 Intake: Oral 240 Output: Urine 600 750 Patient Weight 05/14/25 23:59 Weight 106.9 kg
[2025-05-14 16:09] LABS: Anion Gap 8 mmol/L (4-12); Blood Urea Nitrogen 42 mg/dL (9-20); Calcium 9.6 mg/dL (8.4-10.2); Carbon Dioxide 31 mmol/L (22-30); Chloride 101 mmol/L (98-107); Estimated CRCL calculation 30 ml/min; Estimated Glomerular Filt Rate 27; Glucose 146 mg/dL (65-110); Magnesium 1.1 mg/dL (1.6-2.3); Potassium 4.7 mmol/L (3.4-5.0); Sodium 140 mmol/L (137-145)
[2025-05-14] MEDS: RIVAROXABAN 20 MG TABLET PO (16:54)
--- NOTE | 2025-05-14 17:55 | P.HP_ITS ---
H&P: HPI History of Present Illness Date/Time: 05/14/25 17:55 Chief Complaint: Shortness of breath Narrative: Presents with shortness of breath from home. Ongoing for 6 weeks. A pleasant 74-year-old male with a PMH central obesity class 1, [id number] diabetes mellitus, CKD stage 3, hypertension, hyperlipidemia, GERD, following with [facility] Cardiology [place] history of CAD status post ANDRE graft to the LAD, radial artery graft to the distal RCA and saphenous vein graft to his OM circumference branch in 2018. Post CABG she did have atrial fibrillation postop which was treated with amiodarone but resolved. Diagnosed with atrial fibrillation on 05/03/2025 placed on Xarelto and metoprolol increased. Nuclear stress test showed modest reversible inferior defect concerning for ischemia. A left heart catheterization was being planned in the outpatient setting. Presents to [place] ER on 05/14/2025 with more shortness of breath. Pt was seen by Dr. Gonzales and the decision made to admit the patient due to shortness of breath and AFib/ischemia noted on Lexiscan. Cardiology consulted. Elevated BNP, CORA superimposed on CKD with clinically volume overload chest x-ray showing possible pleural effusion on the left side versus interstitial edema. EKG without any ischemic evidence. Patient was given Lasix. Afterwards, the patient was resting comfortably without any shortness of breath. Review of Systems Review of Systems: All systems reviewed & are unremarkable except as noted in HPI and below (Subjective) PMFSH Past Medical History Medical History Excess ear wax Contact dermatitis Body mass index [BMI] 32.0-32.9, adult (08/18/17) Body mass index [BMI] 33.0-33.9, adult (04/21/17) CAD in [place] artery Gastroesophageal reflux disease without esophagitis Oropharyngeal dysphagia Vitamin D deficiency CKD (chronic kidney disease), stage III HLD (hyperlipidemia) HTN (hypertension) Surgical History Surgical History History of carpal tunnel surgery History of knee replacement, total Hx of CABG Family History Family History Mother Patient's mother is , Onset Age: 79 Father Patient's father is , Onset Age: 69 Social History Social History Smoking status: Never smoker Second hand tobacco smoke exposure: Yes Alcohol intake: current Drinks per week: 6 Alcohol use details: rarely Substance use: never Substance use type: does not use Lack of Transportation: No Lack of Food: Never True Current Housing: I Have Housing Concerned About Future Housing: No Difficulty Paying Gas/Electric Bills: No Difficulty Paying for Meds: No Currently Unemployed: No Education: High School Diploma/GED Difficulty w/ Childcare or Family Care: No Living arrangements: with family Gender identity (if verbalized by the patient): Male Spiritual care concerns: No Meds Home Medications and Allergies Home Medications ?Medication ?Instructions ?Recorded ?Confirmed ?Type ferrous sulfate 325 mg (65 mg 325 mg PO DAILY 06/14/19 05/14/25 History iron) tablet vitamin B12 500 mcg-folic acid 400 1 tablet PO DAILY 0 06/14/19 05/14/25 History mcg tablet blood-glucose meter (OneTouch #1 ea 04/01/24 05/03/25 Rx Verio Flex Meter) atorvastatin 40 mg tablet See Rx Instructions .Route 0 08/01/24 05/14/25 Rx .COMPLEX #100 tabs metoprolol tartrate 75 mg tablet See Rx Instructions . Route 08/01/24 05/14/25 Rx .COMPLEX #180 tabs amlodipine 10 mg tablet See Rx Instructions .Route 0 09/12/24 05/14/25 Rx .COMPLEX #90 tabs lisinopril 10 mg tablet See Rx Instructions .Route 0 12/05/24 05/14/25 Rx .COMPLEX #180 tabs metformin 500 mg tablet,extended See Rx Instructions . Route 12/05/24 05/14/25 Rx release 24 hr .COMPLEX #360 tabs blood sugar diagnostic (OneTouch #100 strips 01/30/25 05/03/25 Rx Verio test strips) allopurinol 300 mg tablet See Rx Instructions .Route 0 02/07/25 05/14/25 Rx .COMPLEX #90 tabs cholecalciferol (vitamin D3) 50 See Rx Instructions .R oute 02/14/25 05/14/25 Rx mcg (2,000 unit) tablet (Vitamin .COMPLEX #90 tabs D3) fenofibrate 160 mg tablet See Rx Instructions .Route 1 05/27/24 05/14/25 Rx .COMPLEX #90 tabs glipizide 10 mg tablet, extended See Rx Instructions . Route 04/18/25 05/14/25 Rx release 24 hr .COMPLEX #90 tabs pantoprazole 40 mg tablet,delayed See Rx Instructions .Route 04/24/25 05/14/25 Rx release .COMPLEX #90 tabs Allergies Allergy/AdvReac Type Severity Reaction Status Date / Time No Known Allergies Allergy Verified 05/14/25 12:31 Vital Signs Vital Signs - 24 hr 05/14/25 04:15 05/14/25 04:29 05/14/25 06:18 Temperature 97.8 F Pulse Rate 74 67 70 Respiratory Rate 22 H 18 18 Blood Pressure 153/75 H 143/88 H 151/75 H Pulse Oximetry 98 96 100 Oxygen Delivery Room Air Room Air 05/14/25 07:00 05/14/25 08:45 05/14/25 09:00 Temperature Pulse Rate 68 69 73 Respiratory Rate 18 20 14 Blood Pressure 144/76 H 132/75 133/67 Pulse Oximetry 98 96 96 Oxygen Delivery 05/14/25 09:11 05/14/25 11:02 05/14/25 11:09 Temperature Pulse Rate 74 72 62 Respiratory Rate 20 18 Blood Pressure 145/87 H 145/87 H Pulse Oximetry 97 97 Oxygen Delivery 05/14/25 11:32 05/14/25 12:00 05/14/25 12:16 Temperature 98.1 F Pulse Rate 78 79 Respiratory Rate 22 H Blood Pressure 149/80 H Pulse Oximetry 98 98 Oxygen Delivery Room Air 05/14/25 16:00 Temperature 98.8 F Pulse Rate 75 Respiratory Rate 14 Blood Pressure 154/81 H Pulse Oximetry 97 Oxygen Delivery Exam Const: General: comfortable and no acute distress Other: A&O x3 Eyes: Pupils: Equal, round and reactive pupils present Neck: Neck: supple Resp: Effort & Inspection: normal respiratory effort Auscultation: clear to auscultation bilaterally Cardio: Rate: regular rate Rhythm: abnormal rhythm Heart sounds: no murmurs GI: GI Palp: Yes Soft to palpation Other: Large abdominal pannus Neuro: Motor exam (neuro): 5/5 motor strength present throughout Extrem: General: no edema Results Labs Labs: Short CBC 05/14/25 Range/Units 04:37 WBC 5.8 (4.5-10.0) K/mm3 Hgb 10.0 L (14.0-18.0) g/dL Hct 32.6 L (42.0-52.0) % Plt Count 185 (150-375) k/mm3 BMP 05/14/25 05/14/25 04:37 15:30 Sodium 140 140 Potassium 4.7 4.7 Chloride 109 H 101 Carbon Dioxide 25 31 H BUN 40 H D 42 H Creatinine 2.30 H 2.38 H Glucose 99 146 H Calcium 8.9 9.6 Cardiac Enzymes 05/14/25 Range/Units 04:37 Troponin I < 0.012 (0.000-0.034) ng/mL Liver Function 05/14/25 Range/Units 04:37 Total Bilirubin 0.5 (0.2-1.3) mg/dL AST 22 (17-59) U/L ALT 13 (6-50) U/L Alkaline Phosphatase 51 (38-126) U/L Albumin 3.9 (3.5-5.1) g/dL Assessment and Plan Assessment and plan (1) HTN (hypertension): Qualifiers: Hypertension type: essential hypertension Qualified Code(s): I10 - Essential (primary) hypertension Code(s): I10 - Essential (primary) hypertension Status: Acute (2) Exertional shortness of breath: Code(s): R06.02 - Shortness of breath Status: Acute (3) HLD (hyperlipidemia): Qualifiers: Hyperlipidemia type: mixed hyperlipidemia Qualified Code(s): E78.2 - Mixed hyperlipidemia Code(s): E78.5 - Hyperlipidemia, unspecified Status: Acute (4) Diabetes mellitus with chronic kidney disease: Code(s): E11.22 - Type 2 diabetes mellitus with diabetic chronic kidney disease Status: Acute (5) History of coronary artery disease: Code(s): Z86.79 - Personal history of other diseases of the circulatory system Status: Acute Plan Presents with shortness of breath from home. Ongoing for 6 weeks. A pleasant 74-year-old male with a [facility] central obesity class 1, nxo-iyzwipq-cbspmfecy diabetes mellitus, CKD stage 3, hypertension, hyperlipidemia, GERD, following with [facility] Cardiology [place] history of CAD status post ANDRE graft to the LAD, radial artery graft to the distal RCA and saphenous vein graft to his OM circumference branch in 2018. Post CABG she did have atrial fibrillation postop which was treated with amiodarone but resolved. Diagnosed with atrial fibrillation on 05/03/2025 placed on Xarelto and metoprolol increased. Nuclear stress test showed modest reversible inferior defect concerning for ischemia. A left heart catheterization was being planned in the outpatient setting. Presents to [place] ER on 05/14/2025 with more shortness of breath. Pt was seen by Dr. Gonzales and the decision made to admit the patient due to shortness of breath and AFib/ischemia noted on Lexiscan. Cardiology consulted. Elevated BNP, CORA superimposed on CKD with clinically volume overload chest x-ray showing possible pleural effusion on the left side versus interstitial edema. EKG without any ischemic evidence. Patient was given Lasix. Afterwards, the patient was resting comfortably without any shortness of breath. ----- Patient received Lasix, breathing comfortably. Continue strict intake/output recordings, daily weights. Admit to IMU, continue telemetry. The patient's magnesium is low at 1.1, administer magnesium 4 g rider. Keep potassium greater than 4, magnesium greater than 2. Cardiology consultation appreciated, metoprolol switched to sotalol. Monitor QTC interval. Attempting to convert the patient 1st before performing left heart catheterization. Continue Xarelto. Continue aspirin and atorvastatin for existing CAD. For now, hold all SHELL SORTER antihypertensives and monitor blood pressure. Hold SHELL SORTER anti glycemic, Accu-Cheks a.c. HS with low-dose insulin sliding scale. Continue SHELL SORTER PPI. ----- Saline lock IV. Continue SHELL SORTER Xarelto. Diabetic, heart healthy diet. NPO at midnight. Patient wishes to be full code. Independent at baseline. Expected length of stay of 2-4 midnights. Time Spent with Patient Time with patient: 75 minutes or greater Hospitalist MIPS Advance Care Plan I have confirmed that the patient's Advanced Care Plan is present, code status is documented, or surrogate decision maker is listed in patient medical record.: Yes Medication Reconciliation I have utilized all available resources to obtain, update and review the patients current medications (includes all prescriptions, OTC, herbals, cannabis, and nutritional supplements).: Yes
[2025-05-14] MEDS: MAGNESIUM SULF 4 GM/WATER100ML 4 GM/100 ML BAG IVPB (18:16)
[2025-05-14] MEDS: PANTOPRAZOLE 40 MG TABLET BY MOUTH (18:36)
[2025-05-14] MEDS: SOTALOL HCL 80 MG TABLET PO (21:30)
[2025-05-14] MEDS: INSULIN ASPART (*BKC) 100 UNITS/ML SUB-Q (21:31)
[2025-05-15] VITALS (17 sets, daily range): BP systolic 121–150; BP diastolic 66–85; PULSE 50–72; RESP 15–20; TEMP 36.6–36.9; O2SAT 94–99
[2025-05-15 04:21] LABS: Hematocrit 32.0 % (42.0-52.0); Hemoglobin 10.3 g/dL (14.0-18.0); Mean Corpuscular HGB Conc 32.2 g/dl (32-36); Mean Corpuscular Hemoglobin 31.2 pg (26-34); Mean Corpuscular Volume 97.0 fl (80-100); Platelet Count Result 191 k/mm3 (150-375); Red Blood Count 3.30 M/mm3 (4.6-6.20); White Blood Count 5.3 K/mm3 (4.5-10.0)
[2025-05-15 04:41] LABS: Anion Gap 5 mmol/L (4-12); Blood Urea Nitrogen 40 mg/dL (9-20); Calcium 9.1 mg/dL (8.4-10.2); Carbon Dioxide 29 mmol/L (22-30); Chloride 103 mmol/L (98-107); Estimated CRCL calculation 31 ml/min; Estimated Glomerular Filt Rate 28; Glucose 151 mg/dL (65-110); Magnesium 2.0 mg/dL (1.6-2.3); Potassium 4.0 mmol/L (3.4-5.0); Sodium 137 mmol/L (137-145)
--- NOTE | 2025-05-15 06:00 | ECHO_ITS ---
Patient Info Name: Bo Zeng Age: 74 years : 1950 Gender: Male Ht: 71 in Wt: 235 lbs BSA: 2.34 m2 HR: 57 bpm BP: 147 / 76 mmHg Heart Rhythm: Atrial Fibrillation Technical Quality: Fair Exam Date: 05/15/2025 12:22 PM Patient Status: I Admit Date: 05/15/2025 Exam Type: CA echo dop color flow w con Complete two-dimensional, color flow and Doppler transthoracic echocardiogram is performed with contrast to opacify the left ventricle and to improve the deliniation of the left ventricle endocardial borders. Staff Referring Physician: Talon Gonzales Termite Renewal Inspector: Shaw Lau III Attending Provider: Kristian Blunt Contrast/Agitated Saline Contrast/Ag. Saline: Definity Amount: 2.00 ml Administered By: Shaw Lau III Existing IV Access: Yes IV Access Condition: patent with no signs of infiltration Summary 1. Left ventricular systolic function is normal, estimated at 65-70. 2. Left atrial chamber dimension is normal. Left Ventricle Left ventricular chamber dimension is normal. Left ventricular systolic function is normal, estimated at 65-70. There is mildly increased left ventricular wall thickness. Left ventricular septal wall motion is normal. The left ventricular diastolic function is abnormal. Right Ventricle Right ventricular chamber dimension is normal. Right ventricular systolic function is normal. Left Atria Left atrial chamber dimension is normal. Right Atria Right atrial chamber dimension is normal. Aortic Valve The aortic valve is trileaflet. There is no aortic valve sclerosis. There is no aortic valve stenosis. There is no aortic valve regurgitation. Pulmonic Valve The pulmonic valve is normal. There is no pulmonic valve stenosis. There is no pulmonic regurgitation. Mitral Valve The mitral valve has normal leaflets. There is no mitral valve stenosis. There is no mitral valve regurgitation. Tricuspid Valve The tricuspid valve leaflets are normal. There is no significant tricuspid valve stenosis. There is no tricuspid valve regurgitation. Pericardium/Pleural The pericardium appears normal. There is no pericardial effusion. Inferior Vena Cava Normal inferior vena cava with >50% collapse upon inspiration consistent with normal right atrial pressure, 5 mmHg. Aorta The aortic root size at the sinus of Valsalva is normal. The prox ascending aorta size is normal. Left Ventricular Outflow Tract Name Value Normal LVOT 2D LVOT Diameter 2.3 cm LVOT Doppler LVOT Peak Velocity 100 cm/s LVOT Peak Gradient 4 mmHg LVOT Mean Gradient 2 mmHg LVOT VTI 22 cm LVOT VTI/AV VTI Ratio 0.9 LVOT Stroke Volume 86 ml LVOT CO 4.6 l/min LVOT CI 2.0 l/min/m2 Pulmonic Valve Name Value Normal PV Doppler PV Peak Velocity 86 cm/s PV Peak Gradient 3 mmHg PV Mean Gradient 2 mmHg Mitral Valve Name Value Normal MV Doppler MV Peak Gradient 6 mmHg MV Mean Gradient 2 mmHg MV Area (Cont Eq VTI) 3.4 cm2 MV Diastolic Function MV E Peak Velocity 109 cm/s MV Decel Time (PW) 255 ms MV Annular TDI MV E/e' (Septal) 16.0 MV E/e' (Lateral) 14.2 MV E/e' (Average) 15.1 Tricuspid Valve Name Value Normal Estimated PAP/RSVP RA Pressure 5 mmHg <=5 Aortic Valve Name Value Normal AV Doppler AV Peak Velocity 126 cm/s AV Peak Gradient 6 mmHg AV Mean Gradient 3 mmHg AV VTI 24 cm AV Area (Cont Eq VTI) 3.6 cm2 >=3.0 AV Area (Cont Eq Joao) 3.2 cm2 AV DI (Joao) 0.80 AV Regurgitation 2D LVOT Area 4.0 cm2 Ventricles Name Value Normal LV Dimensions 2D/MM IVS Diastolic Thickness (2D) 1.1 cm 0.6-1.0 LVID Diastole (2D) 4.9 cm 4.2-5.8 LVIW Diastolic Thickness (2D) 1.2 cm 0.6-1.0 LVID Systole (2D) 2.5 cm 2.5-4.0 LVOT Diameter 2.3 cm LV Mass (2D Cubed) 206.10 g 88.00-224.00 LV Mass Index (2D Cubed) 88 g/m2 49-115 Relative Wall Thickness (2D) 0.47 <=0.42 LV Fractional Shortening/Ejection Fraction 2D/MM LV Fractional Shortening (2D) 40 % 25-43 LV EF (2D Teichholz) 81 % LV Diastolic Volume (4C MOD) 102 ml LV EF (4C MOD) 72 % LV Diastolic Volume (2C MOD) 81 ml LV EF (2C MOD) 66 % LV Diastolic Volume (BP MOD) 94 ml 62-150 LV Diastolic Volume Index (BP MOD) 40 ml/m2 34-74 LV Systolic Volume (BP MOD) 30 ml 21-61 LV Systolic Volume Index (BP MOD) 13 ml/m2 11-31 LV EF (BP MOD) 69 % 52-72 LV Diastolic Length (4C) 7.4 cm LV Systolic Length (4C) 6.4 cm LV Stroke Volume (4C MOD) 73 ml Atria Name Value Normal LA Dimensions LA Volume (4C A-L) 73 ml LA Volume (BP A-L) 76 ml RA Dimensions RA Systolic Major [place] Length (4C) 7.2 cm 2.1-2.7 RA Area (4C) 29.8 cm2 <=18.0 Report Signatures
--- NOTE | 2025-05-15 08:28 | PM.IMPN2 ---
Assessment and Plan Assessment and Plan (1) HTN (hypertension): Qualifiers: Hypertension type: essential hypertension Qualified Code(s): I10 - Essential (primary) hypertension Code(s): I10 - Essential (primary) hypertension Status: Acute (2) Exertional shortness of breath: Code(s): R06.02 - Shortness of breath Status: Acute (3) Diabetes mellitus with chronic kidney disease: Code(s): E11.22 - Type 2 diabetes mellitus with diabetic chronic kidney disease Status: Acute (4) New onset a-fib: Code(s): I48.91 - Unspecified atrial fibrillation Status: Acute Plan Presents with shortness of breath from home. Ongoing for 6 weeks. A pleasant 74-year-old male with a [facility] central obesity class 1, [id number] diabetes mellitus, CKD stage 3, hypertension, hyperlipidemia, GERD, following with [facility] Cardiology [place] history of CAD status post ANDRE graft to the LAD, radial artery graft to the distal RCA and saphenous vein graft to his OM circumference branch in 2018. Post CABG she did have atrial fibrillation postop which was treated with amiodarone but resolved. Diagnosed with atrial fibrillation on 05/03/2025 placed on Xarelto and metoprolol increased. Nuclear stress test showed modest reversible inferior defect concerning for ischemia. A left heart catheterization was being planned in the outpatient setting. Presents to [facility] on 05/14/2025 with more shortness of breath. Pt was seen by Dr. Gonzales and the decision made to admit the patient due to shortness of breath and AFib/ischemia noted on Lexiscan. Cardiology consulted. Elevated BNP, CORA superimposed on CKD with clinically volume overload chest x-ray showing possible pleural effusion on the left side versus interstitial edema. EKG without any ischemic evidence. Patient was given Lasix. Afterwards, the patient was resting comfortably without any shortness of breath. ----- -Patient received Lasix, breathing comfortably. Continue strict intake/output recordings, daily weights. - 05/15/2025: Overnight he has remained in AFib heart rate in the high 50s/60s. Asymptomatic. Magnesium normalized after replacement. Keep potassium greater than 4, magnesium greater than 2. Currently on sotalol 80 mg p.o. b.i.d.. Monitor QTC interval. Continue to appreciate cardiology recommendations, they will like to attempt to convert the patient 1st before performing left heart catheterization. More recommendations to come. For now, continue Xarelto, aspirin, atorvastatin for AFib and pre-existing CAD. -Blood pressure acceptable. Holding MOTOR AND CONTROLS TESTER amlodipine, lisinopril, metoprolol. -On average, blood sugars at goal, hold MOTOR AND CONTROLS TESTER oral hypoglycemics. Accu-Cheks a.c. HS with low-dose insulin sliding scale. -Continue MOTOR AND CONTROLS TESTER PPI. ----- Saline lock IV. Continue MOTOR AND CONTROLS TESTER Xarelto. Diabetic, heart healthy diet. NPO at the moment. Patient wishes to be full code. Independent at baseline. Expected length of stay of 2-4 midnights. Time Spent With Patient Time with patient: Greater than 35 minutes Subjective Date/time seen: 05/15/25 08:28 Interval history: No acute overnight events. Patient has no complaints, feels the same. Review of Systems Review of Systems: All systems reviewed & are unremarkable except as noted in HPI and below (Subjective) Exam Const: General: comfortable and no acute distress HENMT: Mouth: Yes moist mucous membranes Eyes: Pupils: Equal, round and reactive pupils present Neck: Neck: supple Resp: Effort & Inspection: normal respiratory effort Auscultation: clear to auscultation bilaterally Cardio: Rate: regular rate Rhythm: abnormal rhythm GI: Inspection: non-distended GI Palp: Yes Soft to palpation Auscultation: normal bowel sounds Neuro: Motor exam (neuro): 5/5 motor strength present throughout Extrem: General: no edema Objective Data Vital Signs Vital Signs: Vital Signs - 24 hr 05/14/25 08:45 05/14/25 09:00 05/14/25 09:11 Temperature Pulse Rate 69 73 74 Respiratory Rate 20 14 Blood Pressure 132/75 133/67 Pulse Oximetry 96 96 Oxygen Delivery 05/14/25 11:02 05/14/25 11:09 05/14/25 11:32 Temperature Pulse Rate 72 62 Respiratory Rate 20 18 Blood Pressure 145/87 H 145/87 H Pulse Oximetry 97 97 98 Oxygen Delivery Room Air 05/14/25 12:00 05/14/25 12:16 05/14/25 16:00 Temperature 98.1 F 98.8 F Pulse Rate 78 79 75 Respiratory Rate 22 H 14 Blood Pressure 149/80 H 154/81 H Pulse Oximetry 98 97 Oxygen Delivery 05/14/25 16:00 05/14/25 16:00 05/14/25 18:00 Temperature Pulse Rate 91 107 H Respiratory Rate Blood Pressure Pulse Oximetry 97 Oxygen Delivery Room Air 05/14/25 19:54 05/14/25 20:00 05/14/25 20:00 Temperature 98.0 F Pulse Rate 61 86 86 Respiratory Rate 16 20 Blood Pressure 161/74 H Pulse Oximetry 97 94 Oxygen Delivery Room Air 05/14/25 21:30 05/14/25 22:00 05/14/25 23:54 Temperature 97.9 F Pulse Rate 82 60 60 Respiratory Rate 16 Blood Pressure 145/69 H Pulse Oximetry 94 Oxygen Delivery 05/15/25 00:00 05/15/25 00:00 05/15/25 02:00 Temperature Pulse Rate 63 63 50 L Respiratory Rate 16 Blood Pressure Pulse Oximetry 94 Oxygen Delivery Room Air 05/15/25 03:28 05/15/25 03:28 05/15/25 04:00 Temperature 98.2 F Pulse Rate 52 L 52 L 57 L Respiratory Rate 16 16 Blood Pressure 147/76 H Pulse Oximetry 94 94 Oxygen Delivery Room Air Intake/Output Intake/Output: Intake & Output 05/12/25 05/13/25 05/14/25 05/15/25 23:59 23:59 23:59 23:59 Intake Total 462 475 Output Total 1350 Balance -888 475 Meds/Results Medications: Active Medications Generic Name Dose Route Start Last Admin Trade Name Freq PRN Reason Stop Dose Admin Acetaminophen 650 mg 05/14/25 05:42 Acetaminophen 325 Mg Tablet PO Q4H PRN Mild Pain (1-3) or Fever Allopurinol 300 mg 05/14/25 18:05 05/14/25 18:36 Allopurinol 300 Mg Tablet BY MOUTH 300 mg DAILY CLARA Administration Aspirin 81 mg 05/15/25 09:00 Aspirin 81 Mg Enteric Tablet PO QAM [facility] Atorvastatin Calcium 40 mg 05/15/25 09:00 Atorvastatin 40 Mg Tablet PO DAILY CLARA Dextrose 12.5 gm 05/14/25 17:40 Dextrose 50% 25 Gm/50 Ml Syringe IV PUSH PRN PRN Hypoglycemia Protocol Ferrous Sulfate 325 mg 05/15/25 09:00 Ferrous Sulfate 325 Mg Tablet PO DAILY CLARA Glucose 15 gm 05/14/25 17:40 Glucose Oral Gel 15 Gm Of Glucse In 37.5 Gm Tube PO PRN PRN Hypoglycemia Protocol Dextrose 1,000 mls @ 100 mls/hr 05/14/25 17:40 Dextrose 5% 1,000 Ml IVPB PRN PRN Hypoglycemia Protocol Insulin Aspart 2 - 5 units 05/15/25 08:00 05/15/25 08:13 Insulin Aspart (*Bkc) 100 Units/Ml SUB-Q Not Given TIDWM CLARA Protocol Insulin Aspart 1 - 2 units 05/14/25 21:00 05/14/25 21:31 Insulin Aspart (*Bkc) 100 Units/Ml SUB-Q 1 units HS CLARA Administration Protocol Pantoprazole Sodium 40 mg 05/14/25 18:05 05/14/25 18:36 Pantoprazole 40 Mg Tablet BY MOUTH 40 mg DAILY CLARA Administration Perflutren Lipid Microsphere 0 ml 05/14/25 05:42 Perflutren Lipid Microspheres 1.5 Ml Vial Diluted To 10 Ml Total Volume IV PUSH 05/17/25 05:43 ONCE PRN adequate visualization Protocol Rivaroxaban 20 mg 05/14/25 17:00 05/14/25 16:54 Rivaroxaban 20 Mg Tablet PO 20 mg DAILY@1700 CLARA Administration Sotalol HCl 80 mg 05/14/25 21:00 05/14/25 21:30 Sotalol Hcl 80 Mg Tablet PO 80 mg Q12HR CLARA Administration Radiology Results: ITS Impressions Chest X-Ray 05/14/25 07:26 IMPRESSION: 1. Left lung unilateral interstitial pulmonary edema and/or pneumonitis. 2. Probable small left pleural effusion. Labs Labs: Laboratory Results - last 24 hr 05/14/25 05/14/25 05/14/25 11:47 15:30 20:35 WBC RBC Hgb Hct MCV MCH MCHC RDW Plt Count MPV Sodium 140 Potassium 4.7 Chloride 101 Carbon Dioxide 31 H Anion Gap 8 BUN 42 H Creatinine 2.38 H Estim Creat Clear Calc 30 Estimated GFR 27 L Glucose 146 H POC Capillary Glucose 196 H 259 H Calcium 9.6 Magnesium 1.1 L 05/15/25 03:43 WBC 5.3 RBC 3.30 L Hgb 10.3 L Hct 32.0 L MCV 97.0 MCH 31.2 MCHC 32.2 RDW 13.2 Plt Count 191 MPV 10.3 Sodium 137 Potassium 4.0 Chloride 103 Carbon Dioxide 29 Anion Gap 5 BUN 40 H Creatinine 2.27 H Estim Creat Clear Calc 31 Estimated GFR 28 L Glucose 151 H POC Capillary Glucose Calcium 9.1 Magnesium 2.0
[2025-05-15] MEDS: SOTALOL HCL 80 MG TABLET PO ×2 (08:49→20:39)
[2025-05-15] MEDS: PANTOPRAZOLE 40 MG TABLET BY MOUTH (08:50)
[2025-05-15] MEDS: FERROUS SULFATE 325 MG TABLET PO (08:51)
[2025-05-15] MEDS: ATORVASTATIN 40 MG TABLET PO (08:57)
--- NOTE | 2025-05-15 10:49 | ECG_ITS ---
Test Date: 2025-05-15 10:50:25 Measurements Intervals [place] Rate: 59 P: 0 SD: 0 QRS: -34 QRSD: 105 T: 59 QT: 463 QTc: 462 Interpretive Statements ATRIAL FIBRILLATION WITH SLOW VENTRICULAR RESPONSE LEFT AXIS DEVIATION POOR R WAVE PROGRESSION CONSIDER INFERIOR INFARCT, AGE INDETERMINATE BORDERLINE ST-T WAVE ABNORMALITY- HIGH LATERAL LEADS ABNORMAL ECG Compared to ECG 05/14/2025 23:44:15 HEART RATE HAS DECREASED Electronically Signed On 05-15-2025 21:51:02 DIRECTOR OF ANESTHESIA SERVICES by Dagoberto Perez D.O.
--- NOTE | 2025-05-15 11:42 | P.PNCA_ITS ---
Progress Note: A&P Assessment and Plan (1) New onset a-fib: Code(s): I48.91 - Unspecified atrial fibrillation Status: Acute (2) HLD (hyperlipidemia): Qualifiers: Hyperlipidemia type: mixed hyperlipidemia Qualified Code(s): E78.2 - Mixed hyperlipidemia Code(s): E78.5 - Hyperlipidemia, unspecified Status: Acute Plan - Paroxysmal atrial fibrillation+ - History of CABG - Hyperlipidemia - Hypertension - Acute on chronic kidney injury, underlying stage IIIB CKD - Regards to paroxysmal atrial fibrillation, symptomatic with shortness of breath. He was started on sotalol loading during this admission and remains in in atrial fibrillation with controlled heart rate. He started taking Xarelto on May 03. If overnight does not convert to sinus rhythm then we will consider transesophageal echocardiogram with cardioversion tomorrow morning. Continue Xarelto and sotalol. - In regards to history of CABG, patient did have a stress test as an outpatient that shows ischemic defect but he denies any exertional chest pain or anginal symptoms. He will need cardiac catheterization at some point but after restoring sinus rhythm. Continue aspirin and atorvastatin. - Regards to hypertension, continue sotalol. At home he takes also amlodipine and lisinopril and both were not restarted yet. His blood pressure is reasonably controlled. If blood pressure is not controlled then consider adding lisinopril. - Regards to acute on chronic kidney injury, baseline creatinine 1.8 and on admission was 2.4. Creatinine today 2.2. Subjective Date/time seen: Date of service 05/15/25 11:42 Interval history: No acute overnight events. Patient has no complaints, feels the same. -date of service:05/15/2025 Review of Systems Constitutional: Constitutional: Reports no additional constitutional complaints Eyes: Eyes: Reports no additional eye complaints ENT: Reports system reviewed and no additional complaints, except as documented Cardiovascular: Cardiovascular: Reports as per HPI and Reports dyspnea on exertion Respiratory: Respiratory: Reports dyspnea on exertion Gastrointestinal: Gastrointestinal: Reports no additional gastrointestinal complaints Musculoskeletal: Musculoskeletal: Reports no additional musculoskeletal complaints Integumentary/Breasts: Skin/Breast: Reports system reviewed and no additional complaints, except as docu Neurologic: Reports system reviewed and no additional complaints, except as documented Endocrine: Endocrine: Reports no additional endocrine complaints Hematologic/Lymphatic: Hematologic/Lymphatic: Reports no additional hematologic/lymphatic complaints Allergic/Immunologic: Allergic/Immunologic: Reports no additional allergic/immunologic complaints Exam Const: General: comfortable and no acute distress Other: Very pleasant somewhat overweight man no distress of any sort at this time HENMT: Mouth: Yes moist mucous membranes Eyes: Sclera: sclerae normal Neck: Neck: supple and no JVD Resp: Effort & Inspection: normal respiratory effort Auscultation: clear to auscultation bilaterally Other: No audible rales rhonchi or wheezing at this time Cardio: Rate: regular rate Rhythm: abnormal rhythm irregularly irregular GI: Auscultation: normal bowel sounds Skin: General skin exam: normal color Neuro: Other: Alert and oriented x3 Extrem: General: normal to inspection Objective Data Vital Signs Vital Signs: Vital Signs - 24 hr 05/14/25 12:00 05/14/25 12:16 05/14/25 16:00 Temperature 36.7 C 37.1 C Pulse Rate 78 79 75 Respiratory Rate 22 H 14 Blood Pressure 149/80 H 154/81 H Pulse Oximetry 98 97 Oxygen Delivery 05/14/25 16:00 05/14/25 16:00 05/14/25 18:00 Temperature Pulse Rate 91 107 H Respiratory Rate Blood Pressure Pulse Oximetry 97 Oxygen Delivery Room Air 05/14/25 19:54 05/14/25 20:00 05/14/25 20:00 Temperature 36.7 C Pulse Rate 61 86 86 Respiratory Rate 16 20 Blood Pressure 161/74 H Pulse Oximetry 97 94 Oxygen Delivery Room Air 05/14/25 21:30 05/14/25 22:00 05/14/25 23:54 Temperature 36.6 C Pulse Rate 82 60 60 Respiratory Rate 16 Blood Pressure 145/69 H Pulse Oximetry 94 Oxygen Delivery 05/15/25 00:00 05/15/25 00:00 05/15/25 02:00 Temperature Pulse Rate 63 63 50 L Respiratory Rate 16 Blood Pressure Pulse Oximetry 94 Oxygen Delivery Room Air 05/15/25 03:28 05/15/25 03:28 05/15/25 04:00 Temperature 36.8 C Pulse Rate 52 L 52 L 57 L Respiratory Rate 16 16 Blood Pressure 147/76 H Pulse Oximetry 94 94 Oxygen Delivery Room Air 05/15/25 08:00 05/15/25 08:36 05/15/25 08:49 Temperature 36.8 C Pulse Rate 72 61 72 Respiratory Rate 20 Blood Pressure 150/76 H Pulse Oximetry 96 Oxygen Delivery 05/15/25 10:00 Temperature Pulse Rate 64 Respiratory Rate Blood Pressure Pulse Oximetry Oxygen Delivery Intake/Output Intake/Output: Intake & Output 05/12/25 05/13/25 05/14/25 05/15/25 23:59 23:59 23:59 23:59 Intake Total 462 475 Output Total 1350 Balance -888 475 Meds/Results Medications: Active Medications Generic Name Dose Route Start Last Admin Trade Name Freq PRN Reason Stop Dose Admin Acetaminophen 650 mg 05/14/25 05:42 Acetaminophen 325 Mg Tablet PO Q4H PRN Mild Pain (1-3) or Fever Allopurinol 300 mg 05/14/25 18:05 05/15/25 08:50 Allopurinol 300 Mg Tablet BY MOUTH 300 mg DAILY CLARA Administration Aspirin 81 mg 05/15/25 09:00 05/15/25 08:52 Aspirin 81 Mg Enteric Tablet PO Not Given QAM [facility] Atorvastatin Calcium 40 mg 05/15/25 09:00 05/15/25 08:57 Atorvastatin 40 Mg Tablet PO 40 mg DAILY CLARA Administration Dextrose 12.5 gm 05/14/25 17:40 Dextrose 50% 25 Gm/50 Ml Syringe IV PUSH PRN PRN Hypoglycemia Protocol Ferrous Sulfate 325 mg 05/15/25 09:00 05/15/25 08:51 Ferrous Sulfate 325 Mg Tablet PO 325 mg DAILY CLARA Administration Glucose 15 gm 05/14/25 17:40 Glucose Oral Gel 15 Gm Of Glucse In 37.5 Gm Tube PO PRN PRN Hypoglycemia Protocol Dextrose 1,000 mls @ 100 mls/hr 05/14/25 17:40 Dextrose 5% 1,000 Ml IVPB PRN PRN Hypoglycemia Protocol Insulin Aspart 2 - 5 units 05/15/25 08:00 05/15/25 08:13 Insulin Aspart (*Bkc) 100 Units/Ml SUB-Q Not Given TIDWM CLARA Protocol Insulin Aspart 1 - 2 units 05/14/25 21:00 05/14/25 21:31 Insulin Aspart (*Bkc) 100 Units/Ml SUB-Q 1 units HS CLARA Administration Protocol Pantoprazole Sodium 40 mg 05/14/25 18:05 05/15/25 08:50 Pantoprazole 40 Mg Tablet BY MOUTH 40 mg DAILY CLARA Administration Perflutren Lipid Microsphere 0 ml 05/14/25 05:42 Perflutren Lipid Microspheres 1.5 Ml Vial Diluted To 10 Ml Total Volume IV PUSH 05/17/25 05:43 ONCE PRN adequate visualization Protocol Rivaroxaban 20 mg 05/14/25 17:00 05/14/25 16:54 Rivaroxaban 20 Mg Tablet PO 20 mg DAILY@1700 CLARA Administration Sotalol HCl 80 mg 05/14/25 21:00 05/15/25 08:49 Sotalol Hcl 80 Mg Tablet PO 80 mg Q12HR CLARA Administration Radiology Results: ITS Impressions Chest X-Ray 05/14/25 07:26 IMPRESSION: 1. Left lung unilateral interstitial pulmonary edema and/or pneumonitis. 2. Probable small left pleural effusion. Labs Labs: Laboratory Results - last 24 hr 05/14/25 05/14/25 05/14/25 11:47 15:30 20:35 WBC RBC Hgb Hct MCV MCH MCHC RDW Plt Count MPV Sodium 140 Potassium 4.7 Chloride 101 Carbon Dioxide 31 H Anion Gap 8 BUN 42 H Creatinine 2.38 H Estim Creat Clear Calc 30 Estimated GFR 27 L Glucose 146 H POC Capillary Glucose 196 H 259 H Calcium 9.6 Magnesium 1.1 L 05/15/25 05/15/25 05/15/25 03:43 07:30 11:14 WBC 5.3 RBC 3.30 L Hgb 10.3 L Hct 32.0 L MCV 97.0 MCH 31.2 MCHC 32.2 RDW 13.2 Plt Count 191 MPV 10.3 Sodium 137 Potassium 4.0 Chloride 103 Carbon Dioxide 29 Anion Gap 5 BUN 40 H Creatinine 2.27 H Estim Creat Clear Calc 31 Estimated GFR 28 L Glucose 151 H POC Capillary Glucose 149 H 145 H Calcium 9.1 Magnesium 2.0
[2025-05-15] MEDS: PERFLUTREN LIPID MICROSPHERES 1.5 ML VIAL DILUTED TO 10 ML TOTAL VOLUME IV PUSH (14:20)
--- NOTE | 2025-05-15 14:21 | IVDEFINITY ---
Prior to administration of IV Definity the patient was educated on the risks and benefits of the imaging enhancing agent including potential adverse side effects. The patient verbalized understanding. Allergies were verified. No exclusion criteria were identified and at least one of the following inclusion criteria were met: 1) physician request, 2) patient technically difficult to image (per the [place] [employer] guidelines of two or more segments not discernable within the apical view), or 3) questionable left ventricular function. ?
[2025-05-15] MEDS: RIVAROXABAN 20 MG TABLET PO (17:46)
--- NOTE | 2025-05-15 18:07 | WNDPHOTO ---
PHOTO ONLY - See Nursing Notes and/ or assessments for documentation.
--- NOTE | 2025-05-15 18:09 | WNDPHOTO ---
PHOTO ONLY - See Nursing Notes and/ or assessments for documentation.
[2025-05-15] MEDS: INSULIN ASPART (*BKC) 100 UNITS/ML SUB-Q (20:38)
--- NOTE | 2025-05-15 22:40 | ECG_ITS ---
Test Date: 2025-05-15 22:39:26 Measurements Intervals [place] Rate: 64 P: 0 MI: 0 QRS: -41 QRSD: 104 T: 65 QT: 429 QTc: 446 Interpretive Statements ATRIAL FLUTTER/TACHYCARDIA LEFT AXIS DEVIATION POOR R WAVE PROGRESSION INFERIOR INFARCT, AGE INDETERMINATE BORDERLINE ST-T WAVE ABNORMALITY- HIGH LATERAL LEADS ABNORMAL ECG Compared to ECG 05/15/2025 10:50:25 Atrial fibrillation no longer present Electronically Signed On 05-15-2025 23:25:28 HUMAN FACTORS SPECIALIST by Dagoberto Perez D.O.
[2025-05-16] VITALS (22 sets, daily range): BP systolic 116–172; BP diastolic 56–85; PULSE 50–82; RESP 13–22; TEMP 36.7–36.9; O2SAT 95–100
--- NOTE | 2025-05-16 | ECHO_ITS ---
Patient Info Name: Bo Zeng Age: 74 years : 1950 Gender: Male Ht: 71 in Wt: 228 lbs BSA: 2.31 m2 HR: 70 bpm BP: 165 / 81 mmHg Technical Quality: Good Exam Date: 05/16/2025 11:42 AM Patient Status: I Admit Date: 05/15/2025 Exam Type: CA echo transesophageal Complete two-dimensional, color flow and Doppler transesophageal study is performed. Staff Referring Physician: Talon Gonzales Floor Trader: Evonne Thompson Attending Provider: Kristian Blunt Summary 1. Successful cardioversion. 2. Normal ejection fraction. 3. No evidence of left atrial thrombus. 4. Normal left atrial size. 5. Mild mitral regurgitation. Medications Moderate sedation started at 11:54 a.m. and ended at 12:02 p.m. with total duration 7 minutes using 4 mg of Versed and 75 mcg of fentanyl. the registered nurse was clarissa shipley. Procedure Details After informed consent patient , the throat was sprayed with lidocaine. Subsequently moderate sedation was given. Transesophageal echocardiogram was done. And confirmed absence of clots. After that synchronized cardioversion 200 joules delivered achieving sinus rhythm. Procedures done:1-moderate sedation started at 11:54 a.m. and ended at 12:02 p.m. with total duration 7 minutes using 4 mg Versed and 75 mcg of fentanyl. The registered nurse was clarissa shipley. 2-transesophageal echocardiogram using color Doppler and 2D echo. 3-cardioversion of atrial fibrillation. Left Ventricle Left ventricular chamber dimension is normal. Left ventricular systolic function is normal with an ejection [id number] Left ventricular septal wall motion is normal. Right Ventricle Right ventricular chamber dimension is normal. Right ventricular systolic function is normal. Left Atria Left atrial chamber dimension is normal. Right Atria Right atrial chamber dimension is normal. Atrial Appendage There is no thrombus visualized in the left atrial appendage. Aortic Valve The aortic valve is trileaflet. There is no aortic valve sclerosis. There is no aortic valve stenosis. There is no aortic valve regurgitation. Pulmonic Valve The pulmonic valve is normal. There is no pulmonic valve stenosis. There is no pulmonic regurgitation. Mitral Valve The mitral valve has normal leaflets. There is no mitral valve stenosis. There is mild mitral valve regurgitation. Tricuspid Valve The tricuspid valve leaflets are normal. There is no significant tricuspid valve stenosis. There is no tricuspid valve regurgitation. Pericardium/Pleural The pericardium appears normal. Aorta The aortic root size at the sinus of Valsalva is normal. The prox ascending aorta size is normal. Report Signatures
[2025-05-16 05:41] LABS: Anion Gap 5 mmol/L (4-12); Blood Urea Nitrogen 36 mg/dL (9-20); Calcium 8.5 mg/dL (8.4-10.2); Carbon Dioxide 27 mmol/L (22-30); Chloride 104 mmol/L (98-107); Estimated CRCL calculation 32 ml/min; Estimated Glomerular Filt Rate 29; Glucose 173 mg/dL (65-110); Magnesium 1.9 mg/dL (1.6-2.3); Potassium 4.1 mmol/L (3.4-5.0); Sodium 136 mmol/L (137-145)
[2025-05-16] MEDS: PANTOPRAZOLE 40 MG TABLET BY MOUTH (08:21)
[2025-05-16] MEDS: ATORVASTATIN 40 MG TABLET PO (08:21)
[2025-05-16] MEDS: ASPIRIN 81 MG ENTERIC TABLET PO (08:21)
[2025-05-16] MEDS: SOTALOL HCL 80 MG TABLET PO ×2 (08:21→20:37)
[2025-05-16] MEDS: FERROUS SULFATE 325 MG TABLET PO (08:21)
--- NOTE | 2025-05-16 10:20 | ECG_ITS ---
Test Date: 2025-05-16 10:24:43 Measurements Intervals [place] Rate: 58 P: 0 LA: 0 QRS: -24 QRSD: 109 T: 62 QT: 461 QTc: 456 Interpretive Statements ATRIAL FLUTTER/TACHYCARDIA WITH SLOW VENTRICULAR RESPONSE POOR R WAVE PROGRESSION CONSIDER INFERIOR INFARCT, AGE INDETERMINATE BORDERLINE ST-T WAVE ABNORMALITY- HIGH LATERAL LEADS BASELINE ARTIFACT- I, III, AVL ABNORMAL ECG Compared to ECG 05/15/2025 22:39:26 HEART RATE HAS DECREASED Electronically Signed On 05-16-2025 19:22:51 [employer] WORK[employer]ENSATION by Dagoberto Perez D.O.
--- NOTE | 2025-05-16 11:25 | PC.NURSE ---
Pt to laboratory courier for JENNI with cardioversion via stretcher
[2025-05-16] MEDS: fentaNYL CITRATE INJ (*CRX) 100 MCG/2 ML VIAL 75 MCG IV PUSH (11:55)
[2025-05-16] MEDS: MIDAZOLAM HCL (*CRX) 2 MG/2 ML VIAL 4 MG IV PUSH (11:55)
--- NOTE | 2025-05-16 12:00 | ECG_ITS ---
Test Date: 2025-05-16 12:06:56 Measurements Intervals [place] Rate: 65 P: 99 MD: 221 QRS: -35 QRSD: 106 T: 60 QT: 463 QTc: 483 Interpretive Statements SINUS RHYTHM WITH FIRST DEGREE AV BLOCK LEFT AXIS DEVIATION POOR R WAVE PROGRESSION CONSIDER INFERIOR INFARCT, AGE INDETERMINATE BASELINE ARTIFACT- AVR, AVL, V1-V2 ABNORMAL ECG Compared to ECG 05/16/2025 10:24:43 ATRIAL FLUTTER NO LONGER PRESENT Electronically Signed On 05-16-2025 19:24:28 FREIGHT HANDLER by Dagoberto Perez D.O.
--- NOTE | 2025-05-16 13:06 | PC.NURSE ---
Pt returned from cardiac cath lab radiology technologist via wheelchair. No issues noted
[2025-05-16] MEDS: RIVAROXABAN 20 MG TABLET PO (16:43)
[2025-05-16] MEDS: INSULIN ASPART (*BKC) 100 UNITS/ML SUB-Q (16:43)
--- NOTE | 2025-05-16 17:51 | P.PNIM_ITS ---
Assessment and Plan Assessment and Plan (1) HTN (hypertension): Qualifiers: Hypertension type: essential hypertension Qualified Code(s): I10 - Essential (primary) hypertension Code(s): I10 - Essential (primary) hypertension Status: Acute (2) Exertional shortness of breath: Code(s): R06.02 - Shortness of breath Status: Acute (3) Diabetes mellitus with chronic kidney disease: Code(s): E11.22 - Type 2 diabetes mellitus with diabetic chronic kidney disease Status: Acute (4) New onset a-fib: Code(s): I48.91 - Unspecified atrial fibrillation Status: Acute Plan Presents with shortness of breath from home. Ongoing for 6 weeks. A pleasant 74-year-old male with a [facility] central obesity class 1, [id number] diabetes mellitus, CKD stage 3, hypertension, hyperlipidemia, GERD, following with [facility] [place] history of CAD status post ANDRE graft to the LAD, radial artery graft to the distal RCA and saphenous vein graft to his OM circumference branch in 2018. Post CABG she did have atrial fibrillation postop which was treated with amiodarone but resolved. Diagnosed with atrial fibrillation on 05/03/2025 placed on Xarelto and metoprolol increased. Nuclear stress test showed modest reversible inferior defect concerning for ischemia. A left heart catheterization was being planned in the outpatient setting. Presents to [place] [facility] on 05/14/2025 with more shortness of breath. Pt was seen by Dr. Gonzales and the decision made to admit the patient due to shortness of breath and AFib/ischemia noted on Lexiscan. Cardiology consulted. Elevated BNP, CORA superimposed on CKD with clinically volume overload chest x-ray showing possible pleural effusion on the left side versus interstitial edema. EKG without any ischemic evidence. Patient was given Lasix. Afterwards, the patient was resting comfortably without any shortness of breath. ----- -Patient received Lasix, breathing comfortably. Continue strict intake/output recordings, daily weights. - 05/15/2025: Overnight he has remained in AFib heart rate in the high 50s/60s. Asymptomatic. Magnesium normalized after replacement. Keep potassium greater than 4, magnesium greater than 2. Currently on sotalol 80 mg p.o. b.i.d.. Monitor QTC interval. Continue to appreciate cardiology recommendations, they will like to attempt to convert the patient 1st before performing left heart catheterization. More recommendations to come. For now, continue Xarelto, aspirin, atorvastatin for AFib and pre-existing CAD. - 05/16/2025: Status post successful cardioversion. Currently normal sinus rhythm. To remain in IMU. Monitor rhythm. Continue sotalol with QTC check. Will appreciate Cardiology opinion on 05/17/2025 about discharge and the timing of cardiac catheterization. Continue Xarelto. -Blood pressure acceptable. Holding OPTICAL GLASS WET INSPECTOR amlodipine, lisinopril, metoprolol. -On average, blood sugars at goal, hold [employer] GLASS W[employer] INSPECTOR oral hypoglycemics. Accu-Cheks a.c. HS with low-dose insulin sliding scale. -Continue OPTICAL GLASS WET INSPECTOR PPI. CORA on CKD, serum creatinine is improving closer to his baseline. Continue to trend. ----- Saline lock IV. Continue OPTICAL GLASS WET INSPECTOR Xarelto. Diabetic, heart healthy diet. Patient wishes to be full code. Independent at baseline. Expected length of stay of 2-4 midnights. Subjective Date/time seen: 05/16/25 17:51 Interval history: Patient has no complaints. He reports he is feeling better because he is more confident after the cardioversion. He has some questions about travel which she will defer to utility helicopter repairer tomorrow. Review of Systems Review of Systems: All systems reviewed & are unremarkable except as noted in HPI and below (Subjective) Exam Const: General: comfortable and no acute distress HENMT: Mouth: Yes moist mucous membranes Eyes: Pupils: Equal, round and reactive pupils present Neck: Neck: supple Resp: Effort & Inspection: normal respiratory effort Auscultation: clear to auscultation bilaterally Cardio: Rate: regular rate Rhythm: regular rhythm GI: Inspection: non-distended GI Palp: Yes Soft to palpation Auscultation: normal bowel sounds Neuro: Motor exam (neuro): 5/5 motor strength present throughout Extrem: General: no edema Objective Data Vital Signs Vital Signs: Vital Signs - 24 hr 05/15/25 18:00 05/15/25 20:00 05/15/25 20:00 Temperature 98.5 F Pulse Rate 69 72 72 Respiratory Rate 15 Blood Pressure 135/66 Pulse Oximetry 99 Oxygen Delivery Oxygen Flow Rate 05/15/25 20:39 05/15/25 22:00 05/16/25 00:00 Temperature 98.5 F Pulse Rate 67 57 L 64 Respiratory Rate 16 Blood Pressure 128/56 L Pulse Oximetry 96 Oxygen Delivery Oxygen Flow Rate 05/16/25 00:00 05/16/25 02:00 05/16/25 04:00 Temperature 98.4 F Pulse Rate 69 62 65 Respiratory Rate 15 Blood Pressure 145/78 H Pulse Oximetry 98 Oxygen Delivery Oxygen Flow Rate 05/16/25 04:00 05/16/25 06:00 05/16/25 08:00 Temperature 98.4 F Pulse Rate 50 L 55 L 59 L Respiratory Rate 16 Blood Pressure 160/83 H Pulse Oximetry 96 Oxygen Delivery Oxygen Flow Rate 05/16/25 08:00 05/16/25 08:00 05/16/25 08:21 Temperature Pulse Rate 61 70 61 Respiratory Rate 16 Blood Pressure Pulse Oximetry 96 Oxygen Delivery Room Air Oxygen Flow Rate 05/16/25 10:00 05/16/25 11:55 05/16/25 12:00 Temperature Pulse Rate 61 71 64 Respiratory Rate 15 13 Blood Pressure 165/81 H 137/85 Pulse Oximetry 100 98 Oxygen Delivery Oxygen Flow Rate 2 2 05/16/25 12:05 05/16/25 12:15 05/16/25 12:30 Temperature Pulse Rate 62 62 68 Respiratory Rate 15 17 19 Blood Pressure 162/76 H 143/72 H 142/77 H Pulse Oximetry 96 98 95 Oxygen Delivery Room Air Room Air Oxygen Flow Rate 2 05/16/25 12:45 05/16/25 13:15 05/16/25 14:00 Temperature Pulse Rate 67 65 79 Respiratory Rate 15 18 Blood Pressure 150/77 H 141/59 H Pulse Oximetry 96 Oxygen Delivery Room Air Oxygen Flow Rate 05/16/25 15:34 05/16/25 16:00 05/16/25 16:00 Temperature 98.2 F Pulse Rate 75 75 81 Respiratory Rate 22 H 22 H Blood Pressure 116/66 Pulse Oximetry 98 98 Oxygen Delivery Room Air Oxygen Flow Rate Intake/Output Intake/Output: Intake & Output 05/13/25 05/14/25 05/15/25 05/16/25 23:59 23:59 23:59 23:59 Intake Total 462 1115 1180 Output Total 1350 1000 Balance -270 794 0768 Meds/Results Medications: Active Medications Generic Name Dose Route Start Last Admin Trade Name Freq PRN Reason Stop Dose Admin Acetaminophen 650 mg 05/14/25 05:42 Acetaminophen 325 Mg Tablet PO Q4H PRN Mild Pain (1-3) or Fever Allopurinol 300 mg 05/14/25 18:05 05/16/25 08:21 Allopurinol 300 Mg Tablet BY MOUTH 300 mg DAILY CLARA Administration Aspirin 81 mg 05/15/25 09:00 05/16/25 08:21 Aspirin 81 Mg Enteric Tablet PO 81 mg QAM CLARA Administration Atorvastatin Calcium 40 mg 05/15/25 09:00 05/16/25 08:21 Atorvastatin 40 Mg Tablet PO 40 mg DAILY CLARA Administration Dextrose 12.5 gm 05/14/25 17:40 Dextrose 50% 25 Gm/50 Ml Syringe IV PUSH PRN PRN Hypoglycemia Protocol Ferrous Sulfate 325 mg 05/15/25 09:00 05/16/25 08:21 Ferrous Sulfate 325 Mg Tablet PO 325 mg DAILY CLARA Administration Glucose 15 gm 05/14/25 17:40 Glucose Oral Gel 15 Gm Of Glucse In 37.5 Gm Tube PO PRN PRN Hypoglycemia Protocol Dextrose 1,000 mls @ 100 mls/hr 05/14/25 17:40 Dextrose 5% 1,000 Ml IVPB PRN PRN Hypoglycemia Protocol Insulin Aspart 2 - 5 units 05/15/25 08:00 05/16/25 16:43 Insulin Aspart (*Bkc) 100 Units/Ml SUB-Q 2 units TIDWM CLARA Administration Protocol Insulin Aspart 1 - 2 units 05/14/25 21:00 05/15/25 20:38 Insulin Aspart (*Bkc) 100 Units/Ml SUB-Q 1 units HS CLARA Administration Protocol Pantoprazole Sodium 40 mg 05/14/25 18:05 05/16/25 08:21 Pantoprazole 40 Mg Tablet BY MOUTH 40 mg DAILY CLARA Administration Rivaroxaban 20 mg 05/14/25 17:00 05/16/25 16:43 Rivaroxaban 20 Mg Tablet PO 20 mg DAILY@1700 CLARA Administration Sotalol HCl 80 mg 05/14/25 21:00 05/16/25 08:21 Sotalol Hcl 80 Mg Tablet PO 80 mg Q12HR CLARA Administration Radiology Results: ITS Impressions Chest X-Ray 05/14/25 07:26 IMPRESSION: 1. Left lung unilateral interstitial pulmonary edema and/or pneumonitis. 2. Probable small left pleural effusion. Labs Labs: Laboratory Results - last 24 hr 05/15/25 05/16/2505/16/25 19:38 04:14 07:36 Sodium 136 L Potassium 4.1 Chloride 104 Carbon Dioxide 27 Anion Gap 5 BUN 36 H Creatinine 2.20 H Estim Creat Clear Calc 32 Estimated GFR 29 L Glucose 173 H POC Capillary Glucose 232 H 147 H Calcium 8.5 Magnesium 1.9 05/16/25 05/16/25 05/16/25 11:18 13:07 16:25 Sodium Potassium Chloride Carbon Dioxide Anion Gap BUN Creatinine Estim Creat Clear Calc Estimated GFR Glucose POC Capillary Glucose 146 H 138 H 223 H Calcium Magnesium
--- NOTE | 2025-05-16 22:34 | ECG_ITS ---
Test Date: 2025-05-16 22:54:40 Measurements Intervals [place] Rate: 68 P: 82 NC: 225 QRS: -30 QRSD: 109 T: 58 QT: 436 QTc: 465 Interpretive Statements SINUS RHYTHM WITH FIRST DEGREE AV BLOCK WITH OCCASIONAL SUPRAVENTRICULAR PREMATURE COMPLEXES POOR R WAVE PROGRESSION INFERIOR INFARCT, AGE INDETERMINATE BASELINE ARTIFACT- I, II, AVR, AVL, AVF ABNORMAL ECG Compared to ECG 05/16/2025 12:06:56 NO SIGNIFICANT CHANGE Electronically Signed On 05-17-2025 09:03:55 ADMINISTRATIVE [employer] MEMBER by Dagoberto Perez D.O.
[2025-05-17] VITALS (7 sets, daily range): BP systolic 144–152; BP diastolic 68–73; PULSE 63–76; RESP 15–16; TEMP 36.8; O2SAT 94–96
[2025-05-17 04:04] LABS: Hematocrit 31.8 % (42.0-52.0); Hemoglobin 10.0 g/dL (14.0-18.0); Mean Corpuscular HGB Conc 31.4 g/dl (32-36); Mean Corpuscular Hemoglobin 30.6 pg (26-34); Mean Corpuscular Volume 97.2 fl (80-100); Platelet Count Result 175 k/mm3 (150-375); Red Blood Count 3.27 M/mm3 (4.6-6.20); White Blood Count 5.2 K/mm3 (4.5-10.0)
[2025-05-17 04:20] LABS: Anion Gap 6 mmol/L (4-12); Blood Urea Nitrogen 31 mg/dL (9-20); Calcium 8.7 mg/dL (8.4-10.2); Carbon Dioxide 29 mmol/L (22-30); Chloride 103 mmol/L (98-107); Estimated CRCL calculation 36 ml/min; Estimated Glomerular Filt Rate 34; Glucose 144 mg/dL (65-110); Magnesium 1.7 mg/dL (1.6-2.3); Potassium 4.4 mmol/L (3.4-5.0); Sodium 138 mmol/L (137-145)
[2025-05-17] MEDS: ASPIRIN 81 MG ENTERIC TABLET PO (09:21)
[2025-05-17] MEDS: ATORVASTATIN 40 MG TABLET PO (09:21)
[2025-05-17] MEDS: MAGNESIUM SULF 2 GM/WATER 50ML 2 GM/50 ML BAG IVPB (09:21)
[2025-05-17] MEDS: FERROUS SULFATE 325 MG TABLET PO (09:21)
[2025-05-17] MEDS: SOTALOL HCL 80 MG TABLET PO (09:22)
[2025-05-17] MEDS: PANTOPRAZOLE 40 MG TABLET BY MOUTH (09:22)
--- NOTE | 2025-05-17 09:30 | PM.PNCARD ---
Progress Note: A&P Assessment and Plan (1) New onset a-fib: Code(s): I48.91 - Unspecified atrial fibrillation Status: Acute (2) HLD (hyperlipidemia): Qualifiers: Hyperlipidemia type: mixed hyperlipidemia Qualified Code(s): E78.2 - Mixed hyperlipidemia Code(s): E78.5 - Hyperlipidemia, unspecified Status: Acute Plan - Paroxysmal atrial fibrillation+ - History of CABG - Hyperlipidemia - Hypertension - Acute on chronic kidney injury, underlying stage IIIB CKD - Regards to paroxysmal atrial fibrillation, symptomatic with shortness of breath. He was started on sotalol loading during this admission and remains in in atrial fibrillation with controlled heart rate. He started taking Xarelto on May 03. Underwent transesophageal echocardiogram guided cardioversion and he is maintaining sinus rhythm. Continue Xarelto and sotalol. Obtain EKG today and if QTC is normal, he should be able to be discharged home - In regards to history of CABG, patient did have a stress test as an outpatient that shows ischemic defect but he denies any exertional chest pain or anginal symptoms. He will need cardiac catheterization at some point but after restoring sinus rhythm. I believe he is scheduled for cardiac catheterization on Thursday. However this needs to be postponed for 3 weeks given cardioversion. Will arrange for rescheduled catheterization. Continue aspirin and atorvastatin. - Regards to hypertension, continue sotalol. At home he takes also amlodipine and lisinopril and both were not restarted yet. His blood pressure is higher now. Restart amlodipine 10 mg daily. Continue to hold lisinopril. A - Regards to acute on chronic kidney injury, baseline creatinine 1.8 and on admission was 2.4. Creatinine today 1.9 Subjective Date/time seen: 05/17/25 09:30 Interval history: No acute overnight events. Patient has no complaints, feels the same. -date of service:05/15/2025 Date of service 05/17/2025-resting comfortably on chair. Underwent JENNI cardioversion and maintaining sinus rhythm. Shortness of breath much improved Review of Systems Constitutional: Constitutional: Reports no additional constitutional complaints Eyes: Eyes: Reports no additional eye complaints ENT: Reports system reviewed and no additional complaints, except as documented Cardiovascular: Cardiovascular: Reports as per HPI and Reports dyspnea on exertion Respiratory: Respiratory: Reports dyspnea on exertion Gastrointestinal: Gastrointestinal: Reports no additional gastrointestinal complaints Musculoskeletal: Musculoskeletal: Reports no additional musculoskeletal complaints Integumentary/Breasts: Skin/Breast: Reports system reviewed and no additional complaints, except as docu Neurologic: Reports system reviewed and no additional complaints, except as documented Endocrine: Endocrine: Reports no additional endocrine complaints Hematologic/Lymphatic: Hematologic/Lymphatic: Reports no additional hematologic/lymphatic complaints Allergic/Immunologic: Allergic/Immunologic: Reports no additional allergic/immunologic complaints Exam Const: General: comfortable and no acute distress Other: Very pleasant somewhat overweight man no distress of any sort at this time HENMT: Mouth: Yes moist mucous membranes Eyes: Sclera: sclerae normal Neck: Neck: supple and no JVD Resp: Effort & Inspection: normal respiratory effort Auscultation: clear to auscultation bilaterally Other: No audible rales rhonchi or wheezing at this time Cardio: Rate: regular rate Rhythm: abnormal rhythm irregularly irregular GI: Auscultation: normal bowel sounds Skin: General skin exam: normal color Neuro: Other: Alert and oriented x3 Extrem: General: normal to inspection Objective Data Vital Signs Vital Signs: Vital Signs - 24 hr 05/16/25 10:00 05/16/25 11:55 05/16/25 12:00 Temperature Pulse Rate 61 71 64 Respiratory Rate 15 13 Blood Pressure 165/81 H 137/85 Pulse Oximetry 100 98 Oxygen Delivery Oxygen Flow Rate 2 2 05/16/25 12:05 05/16/25 12:15 05/16/25 12:30 Temperature Pulse Rate 62 62 68 Respiratory Rate 15 17 19 Blood Pressure 162/76 H 143/72 H 142/77 H Pulse Oximetry 96 98 95 Oxygen Delivery Room Air Room Air Oxygen Flow Rate 2 05/16/25 12:45 05/16/25 13:15 05/16/25 14:00 Temperature Pulse Rate 67 65 79 Respiratory Rate 15 18 Blood Pressure 150/77 H 141/59 H Pulse Oximetry 96 Oxygen Delivery Room Air Oxygen Flow Rate 05/16/25 15:34 05/16/25 16:00 05/16/25 16:00 Temperature 36.8 C Pulse Rate 75 75 81 Respiratory Rate 22 H 22 H Blood Pressure 116/66 Pulse Oximetry 98 98 Oxygen Delivery Room Air Oxygen Flow Rate 05/16/25 18:00 05/16/25 20:00 05/16/25 20:00 Temperature 36.7 C Pulse Rate 78 82 66 Respiratory Rate 15 Blood Pressure 172/75 H Pulse Oximetry 96 Oxygen Delivery Oxygen Flow Rate 05/16/25 20:37 05/16/25 22:00 05/16/25 23:15 Temperature 36.8 C Pulse Rate 78 70 78 Respiratory Rate 15 Blood Pressure 150/70 H Pulse Oximetry Oxygen Delivery Oxygen Flow Rate 05/17/25 00:00 05/17/25 02:00 05/17/25 04:00 Temperature 36.8 C Pulse Rate 76 75 66 Respiratory Rate 15 Blood Pressure 144/68 H Pulse Oximetry 94 Oxygen Delivery Oxygen Flow Rate 05/17/25 04:00 05/17/25 05:47 05/17/25 08:00 Temperature 36.8 C Pulse Rate 63 66 69 Respiratory Rate 16 Blood Pressure 152/73 H Pulse Oximetry 96 Oxygen Delivery Oxygen Flow Rate Intake/Output Intake/Output: Intake & Output 05/14/25 05/15/25 05/16/25 05/17/25 23:59 23:59 23:59 23:59 Intake Total 462 1115 1180 400 Output Total 1350 1000 Balance -698 889 3114 400 Meds/Results Medications: Active Medications Generic Name Dose Route Start Last Admin Trade Name Freq PRN Reason Stop Dose Admin Acetaminophen 650 mg 05/14/25 05:42 Acetaminophen 325 Mg Tablet PO Q4H PRN Mild Pain (1-3) or Fever Allopurinol 300 mg 05/14/25 18:05 05/16/25 08:21 Allopurinol 300 Mg Tablet BY MOUTH 300 mg DAILY CLARA Administration Aspirin 81 mg 05/15/25 09:00 05/16/25 08:21 Aspirin 81 Mg Enteric Tablet PO 81 mg QAM CLARA Administration Atorvastatin Calcium 40 mg 05/15/25 09:00 05/16/25 08:21 Atorvastatin 40 Mg Tablet PO 40 mg DAILY CLARA Administration Dextrose 12.5 gm 05/14/25 17:40 Dextrose 50% 25 Gm/50 Ml Syringe IV PUSH PRN PRN Hypoglycemia Protocol Ferrous Sulfate 325 mg 05/15/25 09:00 05/16/25 08:21 Ferrous Sulfate 325 Mg Tablet PO 325 mg DAILY CLARA Administration Glucose 15 gm 05/14/25 17:40 Glucose Oral Gel 15 Gm Of Glucse In 37.5 Gm Tube PO PRN PRN Hypoglycemia Protocol Dextrose 1,000 mls @ 100 mls/hr 05/14/25 17:40 Dextrose 5% 1,000 Ml IVPB PRN PRN Hypoglycemia Protocol Magnesium Sulfate 2 gm in 50 mls @ 25 mls/hr 05/17/25 08:30 Magnesium Sulf 2 Gm/Water 50ml IVPB 05/17/25 10:29 ONCE ONE Insulin Aspart 2 - 5 units 05/15/25 08:00 05/16/25 16:43 Insulin Aspart (*Bkc) 100 Units/Ml SUB-Q 2 units TIDWM CLARA Administration Protocol Insulin Aspart 1 - 2 units 05/14/25 21:00 05/16/25 20:27 Insulin Aspart (*Bkc) 100 Units/Ml SUB-Q Not Given HS CLARA Protocol Pantoprazole Sodium 40 mg 05/14/25 18:05 05/16/25 08:21 Pantoprazole 40 Mg Tablet BY MOUTH 40 mg DAILY CLARA Administration Rivaroxaban 20 mg 05/14/25 17:00 05/16/25 16:43 Rivaroxaban 20 Mg Tablet PO 20 mg DAILY@1700 CLARA Administration Sotalol HCl 80 mg 05/14/25 21:00 05/16/25 20:37 Sotalol Hcl 80 Mg Tablet PO 80 mg Q12HR CLARA Administration Radiology Results: ITS Impressions Chest X-Ray 05/14/25 07:26 IMPRESSION: 1. Left lung unilateral interstitial pulmonary edema and/or pneumonitis. 2. Probable small left pleural effusion. Labs Labs: Laboratory Results - last 24 hr 05/16/25 05/16/25 05/16/25 11:18 13:07 16:25 WBC RBC Hgb Hct MCV MCH MCHC RDW Plt Count MPV Sodium Potassium Chloride Carbon Dioxide Anion Gap BUN Creatinine Estim Creat Clear Calc Estimated GFR Glucose POC Capillary Glucose 146 H 138 H 223 H Calcium Magnesium 05/16/25 05/17/25 05/17/25 19:52 03:56 07:39 WBC 5.2 RBC 3.27 L Hgb 10.0 L Hct 31.8 L MCV 97.2 MCH 30.6 MCHC 31.4 L RDW 13.0 Plt Count 175 MPV 9.4 Sodium 138 Potassium 4.4 Chloride 103 Carbon Dioxide 29 Anion Gap 6 BUN 31 H Creatinine 1.94 H Estim Creat Clear Calc 36 Estimated GFR 34 L Glucose 144 H POC Capillary Glucose 198 H 149 H Calcium 8.7 Magnesium 1.7
--- NOTE | 2025-05-17 09:33 | ECG_ITS ---
Test Date: 2025-05-17 09:49:44 Measurements Intervals [place] Rate: 65 P: 80 IN: 221 QRS: -27 QRSD: 102 T: 58 QT: 424 QTc: 443 Interpretive Statements SINUS RHYTHM WITH FIRST DEGREE AV BLOCK BORDERLINE R WAVE PROGRESSION, ANTERIOR LEADS BASELINE ARTIFACT- I, III, AVR, AVL, AVF, V1-V6 BORDERLINE ECG Compared to ECG 05/16/2025 22:54:40 NO SIGNIFICANT CHANGE Electronically Signed On 05-17-2025 10:29:45 [employer]CR[employer]ER by Dagoberto Perez D.O.
--- NOTE | 2025-05-17 10:20 | P.DS_ITS ---
DS: Admitting Diagnosis Discharge Date 05/17/2025 Admitting Diagnosis shortness of breat DS: Discharge Diagnosis Discharge Diagnosis (1) HTN (hypertension): Qualifiers: Hypertension type: essential hypertension Qualified Code(s): I10 - Essential (primary) hypertension Code(s): I10 - Essential (primary) hypertension Status: Acute (2) New onset a-fib: Code(s): I48.91 - Unspecified atrial fibrillation Status: Acute (3) Exertional shortness of breath: Code(s): R06.02 - Shortness of breath Status: Acute (4) History of coronary artery disease: Code(s): Z86.79 - Personal history of other diseases of the circulatory system Status: Acute DS: Summary Hospital Course Hospital Course: Presents with shortness of breath from home. Ongoing for 6 weeks. A pleasant 74-year-old male with a [facility] central obesity class 1, [id number] diabetes mellitus, CKD stage 3, hypertension, hyperlipidemia, GERD, following with [facility] Cardiology Marycruz history of CAD status post ANDRE graft to the LAD, radial artery graft to the distal RCA and saphenous vein graft to his OM circumference branch in 2018. Post CABG she did have atrial fibrillation postop which was treated with amiodarone but resolved. Diagnosed with atrial fibrillation on 05/03/2025 placed on Xarelto and metoprol ol increased. Nuclear stress test showed modest reversible inferior defect concerning for ischemia. A left heart catheterization was being planned in the outpatient setting. Presents to [facility] on 05/14/2025 with more shortness of breath. Pt was seen by Dr. Gonzales and the decision made to admit the patient due to shortness of breath and AFib/ischemia noted on Lexiscan. Cardiology consulted. Elevated BNP, CORA superimposed on CKD with clinically volume overload chest x-ray showing possible pleural effusion on the left side versus interstitial edema. EKG without any ischemic evidence. Patient was given Lasix. Afterwards, the patient was resting comfortably without any shortness of breath. ----- his shortness of breath has completely resolved. He feels ready and eager to return home. He received Lasix, more importantly he underwent successful cardioversion on 05/16/2025. He remains in normal sinus rhythm. His QTC is acceptable, he is discharged in stable condition on 05/17/2025 to home with new prescription sotalol 80 mg p.o. b.i.d.. Metoprolol discontinued. He is to continue amlodipine, aspirin, statin. Lisinopril rebound hold for now and further medication adjustments for high blood pressure will be made. Cardiology is rescheduling his cardiac catheterization as he needs to continue his anticoagulation with Xarelto for at least 3 weeks. Adverse effects, risks and benefits of medication discussed. All of his questions and concerns were answered to satisfaction. He had an CORA but that resolved. Magnesium was replaced. Status at Discharge Overall status at discharge: patient is back to baseline Time Spent with Patient Time attestation: Total time spent providing and/or coordinating discharge services: Time spent: Greater than 30 minutes Exam Const: General: comfortable and no acute distress HENMT: Mouth: Yes moist mucous membranes Eyes: Pupils: Equal, round and reactive pupils present Neck: Neck: supple Resp: Effort & Inspection: normal respiratory effort Auscultation: clear to auscultation bilaterally Cardio: Rate: regular rate Rhythm: regular rhythm GI: Inspection: non-distended GI Palp: Yes Soft to palpation Auscultation: normal bowel sounds Neuro: Motor exam (neuro): 5/5 motor strength present throughout Extrem: General: no edema DS: Data Data Completed and Pending Labs on day of discharge: Labs from last 24 hours 05/17/25 05/17/25 05/16/25 07:39 03:56 19:52 WBC 5.2 RBC 3.27 L Hgb 10.0 L Hct 31.8 L MCV 97.2 MCH 30.6 MCHC 31.4 L RDW 13.0 Plt Count 175 MPV 9.4 Sodium 138 Potassium 4.4 Chloride 103 Carbon Dioxide 29 Anion Gap 6 BUN 31 H Creatinine 1.94 H Estim Creat Clear Calc 36 Estimated GFR 34 L Glucose 144 H POC Capillary Glucose 149 H 198 H Calcium 8.7 Magnesium 1.7 05/16/25 05/16/25 05/16/25 16:25 13:07 11:18 WBC RBC Hgb Hct MCV MCH MCHC RDW Plt Count MPV Sodium Potassium Chloride Carbon Dioxide Anion Gap BUN Creatinine Estim Creat Clear Calc Estimated GFR Glucose POC Capillary Glucose 223 H 138 H 146 H Calcium Magnesium Discharge Plan Discharge Attending physician on discharge: Yennifer Reid Consulting providers: Mino Gann Discharging Clinician: Yennifer Reid Patient Disposition: Home Activity: may shower Diet: heart healthy Patient Instructions: Antibiotic Form Patient Language: Romansh Stand Alone Forms: General Discharge Information Follow-up/Referrals: Mino Goldman MD [Primary Care Provider, Internal Medicine] Discharge Medications: New atorvastatin 40 mg Tablet 40 mg PO DAILY Qty: 30 0RF sotalol 80 mg Tablet 80 mg PO Q12HR Qty: 60 0RF aspirin 81 mg Tablet,Delayed Release (Dr/Ec) 81 mg PO QAM Qty: 30 0RF Xarelto 20 mg Tablet 20 mg PO DAILY@1700 Qty: 30 0RF Continued vitamin [id number] acid 500-400 mcg tablet 1 tablet PO DAILY Rx Instructions: administer with a meal ferrous sulfate 325 mg (65 mg iron) tablet 325 mg PO DAILY (DME) blood-glucose meter [place]OneTouch Verio Flex [place] [facility] [place] .Route Qty: 1 3RF Rx Instructions: As directed atorvastatin 40 mg tablet See Rx Instructions .ROUTE .COMPLEX Qty: 100 2RF Dose Instruction: TAKE 1 TABLET BY MOUTH EVERY DAY Rx Instructions: TAKE 1 TABLET BY MOUTH EVERY DAY amlodipine 10 mg tablet See Rx Instructions .ROUTE .COMPLEX Qty: 90 2RF Dose Instruction: TAKE 1 TABLET BY MOUTH EVERY DAY Rx Instructions: TAKE 1 TABLET BY MOUTH EVERY DAY metformin 500 mg tablet extended release 24 hr See Rx Instructions .ROUTE .COMPLEX Qty: 360 2RF Dose Instruction: TAKE 2 TABLETS BY MOUTH TWICE A DAY WITH FOOD Rx Instructions: TAKE 2 TABLETS BY MOUTH TWICE A DAY WITH FOOD (DME) OneTouch Verio test strips Strip See Rx Instructions .ROUTE .COMPLEX Qty: 100 3RF Dose Instruction: USE TO TEST ONCE DAILY Rx Instructions: USE TO TEST ONCE DAILY allopurinol 300 mg tablet See Rx Instructions .ROUTE .COMPLEX Qty: 90 2RF Dose Instruction: TAKE 1 TABLET BY MOUTH EVERY DAY Rx Instructions: TAKE 1 TABLET BY MOUTH EVERY DAY cholecalciferol (vitamin D3) [Vitamin D3] 50 mcg (2,000 unit) tablet See Rx Instructions .ROUTE .COMPLEX Qty: 90 2RF Dose Instruction: TAKE 1 TABLET BY MOUTH EVERY DAY Rx Instructions: TAKE 1 TABLET BY MOUTH EVERY DAY fenofibrate 160 mg tablet See Rx Instructions .ROUTE .COMPLEX Qty: 90 2RF Dose Instruction: TAKE 1 TABLET BY MOUTH EVERY DAY Rx Instructions: TAKE 1 TABLET BY MOUTH EVERY DAY glipizide 10 mg tablet extended release 24hr See Rx Instructions .ROUTE .COMPLEX Qty: 90 2RF Dose Instruction: TAKE 1 TABLET BY MOUTH EVERY DAY Rx Instructions: TAKE 1 TABLET BY MOUTH EVERY DAY pantoprazole 40 mg tablet,delayed release (DR/EC) See Rx Instructions .ROUTE .COMPLEX Qty: 90 2RF Dose Instruction: TAKE 1 TABLET BY MOUTH EVERY DAY Rx Instructions: TAKE 1 TABLET BY MOUTH EVERY DAY Held lisinopril 10 mg tablet See Rx Instructions .ROUTE .COMPLEX Qty: 180 2RF Hold Instructions: Hold for now, 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 Dose Instruction: TAKE 2 TABLETS BY MOUTH DAILY Rx Instructions: TAKE 2 TABLETS BY MOUTH DAILY Discontinued metoprolol tartrate 75 mg tablet See Rx Instructions .ROUTE .COMPLEX Qty: 180 2RF Dose Instruction: TAKE 1 TABLET BY MOUTH TWICE A DAY Rx Instructions: TAKE 1 TABLET BY MOUTH TWICE A DAY Date of admission: 05/15/25 11:24 Primary Care Provider: Mino Goldman Admitting Provider: Kristian Blunt Attending physician on admission: Kristian Blunt Condition: Stable Hospitalist MIPS Heart Failure (Exclusion) Patient has history of Heart Transplant or Left Ventricular Assistive Device?: No IF YES, STOP HERE Heart Failure (Qualifier) Patient has current or prior documentation of LVEF less than or equal to 40%, or mod/servere depressed LVSF?: No IF NO, STOP HERE
== END 2025-05-17 12:58 | disposition home or self-care (01) | DRG 309 ==
LOC: ANHED 05:50 → ANHIMU 05:56
PROVIDERS: Internal Medicine Cardiovascular Disease; Specialist; Admitting Provider Internal Medicine; Emergency Provider Student in an Organized Health Care Education/Training Program; PCP Emergency Medicine; Visit Provider General Practice
PROC: B24BZZ4 Ultrasonography of Heart with Aorta, Transesophageal (ICD-10-PCS; CPT 93312; principal; 2025-05-16 11:00)
PROC: 5A2204Z Restoration of Cardiac Rhythm, Single (ICD-10-PCS; 2025-05-16 11:00)
DX: I48.0 Paroxysmal atrial fibrillation (principal); J90 Pleural effusion, not elsewhere classified; E11.22 Type 2 diabetes mellitus with diabetic chronic kidney disease; E55.9 Vitamin D deficiency, unspecified; E66.9 Obesity, unspecified; E78.2 Mixed hyperlipidemia; I12.9 Hypertensive chronic kidney disease with stage 1 through stage 4 chronic kidney disease, or unspecified chronic kidney disease; I25.10 Atherosclerotic heart disease of native coronary artery without angina pectoris; K21.9 Gastro-esophageal reflux disease without esophagitis; N18.32 Chronic kidney disease, stage 3b; Z79.01 Long term (current) use of anticoagulants; Z79.82 Long term (current) use of aspirin; Z79.84 Long term (current) use of oral hypoglycemic drugs; Z20.822 Contact with and (suspected) exposure to COVID-19; Z95.1 Presence of aortocoronary bypass graft; Z68.32 Body mass index [BMI] 32.0-32.9, adult
CPT/HCPCS: 36415; 71045; 80048; 80053; 82948; 83735; 83880; 84484; 85025; 85027; 87637; 92960; 93005; 93312; 93320; 93325; 96374; 96375; 99285; A9270; C8929; G0378; J1815; J1938; J2250; J2704; J3010; J3475; J7040; Q9957